=== PATIENT | male | born 2000 ===

== ENCOUNTER 2022-10-29 05:28 | Emergency (ER) | payer OTHER, SELFPAY ==
--- NOTE | ~2022-10-29 | XR_ITS ---
EXAMINATION: XR CHEST CLINICAL INFORMATION: Shortness of breath COMPARISON: None available. TECHNIQUE: 2 views of the chest were obtained. FINDINGS: The cardiac and mediastinal contours are normal. The lungs are well inflated. The lungs are clear. No pleural effusion or pneumothorax. Bony structures are unremarkable. XR/XR chest 2V IMPRESSION: Well-inflated lungs. No evidence for acute disease in the chest.
[2022-10-29 05:33] VITALS: BP 135/95; PULSE 88; RESP 16; TEMP 36.7; O2SAT 97; BMI 19.8
--- NOTE | 2022-10-29 06:46 | ED.SOB ---
HPI - SOB/Dyspnea General Chief Complaint: Dyspnea Stated Complaint: Shortness of breath Time Seen by Provider: 10/29/22 06:37 Source: patient and RN notes reviewed Mode of arrival: ambulatory Limitations: no limitations History of Present Illness HPI Narrative: This is a 22-year-old male, with a past medical history of ADHD and anxiety, presents to the emergency department today with complaints of shortness of breath x 4 days. Patient states that last week he had an upper respiratory infection where he had nasal congestion, cough, and fevers. He states that his symptoms improved for several days and then 4 days ago he developed this shortness of breath. He states that he has had difficulty sleeping due to the shortness of breath he is feeling. He admits to having some nasal congestion and a cough. Patient denies history of asthma. Denies tobacco use, does vape and smoke marijuana occasionally. He denies any chest pain, palpitations, fevers, chills, ear pain, sore throat, abdominal pain, nausea, vomiting, or diarrhea. No swelling to his legs. Denies taking any medications at home to treat his symptoms. No recent travels, surgeries, hospitalizations, hx of blood clots, or cancer history. No family history of blood clotting disorders. Denies hx of illicit drug use. No other complaints or concerns at this time. MD elicited complaint: shortness of breath and anxiety Onset (ago): day(s) Context: recent illness and anxiety Timing: constant Severity: moderate Exacerbating factors: nothing Relieving factors: nothing Associated symptoms: denies other symptoms Treatment prior to arrival: none Related Data Previous Rx's Medication Instructions Recorded albuterol sulfate 90 mcg/actuation 2 puff inhalation Q4-6H PRN 10/29/22 aerosol inhaler (ProAir HFA) shortness of breath or wheezing #6.7 grams inhalational spacing device #1 ea 10/29/22 (Aerochamber MV spacer) prednisone 20 mg tablet 40 mg PO DAILY 5 days #10 tabs 10/29/22 Allergies Allergy/AdvReac Type Severity Reaction Status Date / Time shellfish derived AdvReac Anaphylaxis Verified 10/29/22 05:37 Review of Systems Review of Systems: Constitutional: No Weight loss, No Fever, No Chills, No Night Sweats, No Fatigue, No Malaise ENT/Mouth: No Hearing loss, No Ear Pain, + Nasal Congestion, No Sinus Pain, No Hoarseness, No sore throat, No Rhinorrhea, No Swallowing Difficulty Eyes: No Eye Pain, No Swelling, No Redness, No Foreign Body, No Discharge, No Vision Changes Cardiovascular: No Chest Pain, +SOB, No Dyspnea on Exertion, No Orthopnea, No Edema, No Palpitations Respiratory: No Cough, No Sputum, No Wheezing, No Smoke Exposure, No Dyspnea Gastrointestinal: No Nausea, No Vomiting, No Diarrhea, No Constipation, No Abdominal pain, No Hematochezia, No Melena Genitourinary: No irregular bleeding, No Dysuria, No Urinary Frequency, No Hematuria, No Urinary Incontinence/retention, No Urgency, No Flank Pain, No Urinary Flow Changes, No Hesitancy Musculoskeletal: No joint pain, No Myalgias, No Joint Swelling Skin: No Skin Lesions, No rash Neuro: No Weakness, No Numbness, No Paresthesias, No Loss of Consciousness, No Dizziness, No Headache Psych: No Anxiety/Panic, No Depression, No SI/HI/AH/VH, No Social Issues, Heme/Lymph: No Bruising, No Bleeding,No Lymphadenopathy Endocrine: No Polyuria, No Polydipsia, No Temperature Intolerance Yes all other systems are reviewed and are negative Constitutional: Constitutional: Reports as per [facility] Social History Social History Alcohol intake: never Smoked in Last 30 Days: No Use of substances other than those prescribed or required for medical reasons: No Advance Directives: No Advance Directives Information Provided: No Physical Exam Vital Signs: Vital Signs: Last Vital Signs Temp 97.6 F 10/29/22 07:47 Pulse 58 10/29/22 08:28 Resp 16 10/29/22 08:28 BP 121/84 10/29/22 07:47 Pulse Ox 98 10/29/22 07:47 O2 Del Method Room Air 10/29/22 07:47 BMI result Body Mass Index 19.8 Const: General: cooperative, comfortable and no acute distress Nutritional Appearance: thin Orientation/consciousness: patient oriented x3 Limitations: no limitations HEENT: Head: Yes normal to inspection, Yes normocephalic and Yes atraumatic Ears: hearing grossly normal bilaterally General nose exam: Normal external nose present Face and sinus: Yes normal facial exam Mouth: Normal oral and palatal mucosa present, oropharynx normal and moist mucous membranes Throat: Yes posterior oropharynx normal Eyes: General: appearance normal, both eyes and all related structures Eyelids: Yes eyelids normal Conjunctivae: conjunctivae normal Sclerae: sclerae normal Pupils: Equal, round and reactive pupils present EOM: EOMs intact bilaterally Neck: Neck: Yes normal visual inspection, Yes full ROM and Yes no lymphadenopathy Lymphatic: no lymphadenopathy noted Chest: Chest palpation & inspection: normal inspection of the chest Resp: Effort & Inspection: normal respiratory effort and able to speak in complete sentences Auscultation: clear to auscultation bilaterally, no crackles, no rales, no rhonchi and no wheezes Cardio: Rate: regular rate Rhythm: regular rhythm Heart sounds: S1 normal heart sound present and S2 normal heart sound present GI: Inspection: Yes normal to inspection Skin: General skin exam: no rashes or lesions noted Trauma: no lacerations or abrasions Wounds: no wounds Neuro: General: patient oriented x3 and moves all extremities Cranial nerves: Yes Equal, round and reactive pupils present Extrem: General: Yes normal to inspection Right upper extremity: normal to inspection Left upper extremity: normal to inspection Right lower extremity: normal to inspection Left lower extremity: normal to inspection Course Reevaluation(s) Reevaluation #1: Chest x-ray unremarkable. COVID testing pending. Patient has no history asthma, However will try 2 puffs of albuterol inhaler. Time: 07:19 Reevaluation #2: Pt's symptoms improved with albuterol, but still having SOB. Lungs clear to auscultation without wheezes or rhonchi, ?slightly diminished lung sounds in the left lower lobe.given mild improvement will try albuterol updraft. Reevaluation #3: Pt's symptoms completely resolved after albuterol updraft. Lungs clear to auscultation, better air movement throughout all lung araujo. No wheezes or rhonchi. Will discharge pt on albuterol inhaler, spacer, and prednisone course. Advised to f/u with PCP as they may want to test pt for asthma. Pt understands and agrees with plan. Vital signs stable. Pt stable for discharge. Medications Administered Discontinued Medications Generic Name Dose Route Start Last Admin Trade Name Freq PRN Reason Stop Dose Admin Albuterol Sulfate 2 puff 10/29/22 07:22 10/29/22 07:50 Albuterol Sulfate 90 Mcg 8 Gm Inhaler INHALE 10/29/22 07:23 2 puff ONCE ONE Administration Albuterol Sulfate 5 mg 10/29/22 08:10 10/29/22 08:27 Albuterol Sulfate (0.083%) 2.5 Mg/3 Ml Vial.Neb INHALE 10/29/22 08:11 5 mg ONCE ONE Administration Medical Decision Making Medical Decision Making [facility] Narrative: 22 y/o M, hx of anxiety and ADHD, who presents for evaluation of shortness of breath x 4 days. Recent URI 2 weeks ago. Reports mild cough and nasal congestion. Pt has no chest pain, fevers, chills. No PE/DVT risk factors. On exam, vital signs WNL, pt's O2 97% on RA with a repiratory rate of 16rpm. Pt is nontoxic appearing and resting comfortably in stretcher. Lungs CTAB. Plan: Chest x-ray, COVID-19. Differential Diagnosis Differential Diagnoses: The differential diagnosis associated with the presentation includes Pneumothorax, pneumonia, reactive airway disease, PE - unlikely Admission/Observation Consideration of admission/observation: Escalation of care including admission/observation considered Lab Data [facility] Lab Attestation statement: I reviewed the patient's lab results. Labs: Lab Results 10/29/22 Range/Units 07:17 COVID-19 (MAHAMED) Negative (Negative) COVID-19 Clin Com See Note Radiology Impression Discussion of test interpretation with radiology: I have reviewed the radiologist's reading. Radiologist Impression: EXAMINATION: XR CHEST CLINICAL INFORMATION: Shortness of breath COMPARISON: None available. TECHNIQUE: 2 views of the chest were obtained. FINDINGS: The cardiac and mediastinal contours are normal. The lungs are well inflated. The lungs are clear. No pleural effusion or pneumothorax. Bony structures are unremarkable. XR/XR chest 2V IMPRESSION: Well-inflated lungs. No evidence for acute disease in the chest. Dictated By: Ami Sierra MD External Record Review External record reviewed: Inpatient record, Office record, Outpatient record, Prior outpatient labs, Prior outpatient radiology, Primary care record and Outside ED record Discharge Plan Discharge Clinical Impression: Reactive airway disease Patient Disposition: Home, Self-Care Instructions: Reactive Airways Disease (ED) Additional Instructions: You tested negative for COVID today. Your chest x-ray showed no pneumonia. Please take prescribed prednisone as directed for the next 5 days. Please use albuterol inhaler as needed for your symptoms. Follow up with your primary care physician, call monday to make an appointment - they may want to test you for asthma. If any new or worsening symptoms occur, including but not limited to chest pain, palpitations, worsening shortness of breath not responding to inhaler, please return for re-evaluation. Prescriptions: New prednisone 20 mg tablet 40 mg PO DAILY 5 Days Qty: 10 0RF albuterol sulfate [ProAir HFA] 90 mcg/actuation HFA aerosol inhaler 2 puff inhalation Q4-6H PRN (Reason: shortness of breath or wheezing) Qty: 6.7 0RF (DME) Aerochamber MV Spacer See Rx Instructions .Route Qty: 1 0RF Rx Instructions: As directed Interventions: ED Discharge Assessment Last Done: 10/29/22 09:25 Discharge Date/Time: 10/29/22 09:26
--- NOTE | 2022-10-29 07:19 | PC.NURSE ---
assumed care of this pt at 0700. pt resting quietly on stretcher. rr even/unlabored. in no apparent distress. wctm
[2022-10-29 07:47] VITALS: BP 121/84; PULSE 51; RESP 16; TEMP 36.4; O2SAT 98
[2022-10-29] MEDS: Albuterol Sulfate 90 MCG 8 GM INHALER 2 PUFF INHALE (07:50)
[2022-10-29 07:51] LABS: COVID-19 Test Negative (Negative); IDNOW Serial# BCCEAD1C
[2022-10-29] MEDS: Albuterol Sulfate (0.083%) 2.5 MG/3 ML VIAL.NEB 5 MG INHALE (08:27)
[2022-10-29 08:28] VITALS: PULSE 58; RESP 16; O2SAT 98
== END 2022-10-29 09:26 | disposition home or self-care (01) ==
PROVIDERS: Physician Assistant Medical; Emergency Provider Emergency Medicine Emergency Medical Services
DX: J45.909 Unspecified asthma, uncomplicated (principal); Z20.822 Contact with and (suspected) exposure to COVID-19; R06.02 Shortness of breath
CPT/HCPCS: 71046; 87635; 94640; 99284; 99285

== ENCOUNTER 2023-01-18 21:26 | Emergency (ER) | payer OTHER, SELFPAY ==
--- NOTE | 2023-01-18 | ECG_ITS ---
Test Reason : sob Blood Pressure : / mmHG Vent. Rate : 071 BPM Atrial Rate : 071 BPM P-R Int : 180 ms QRS Dur : 092 ms QT Int : 344 ms P-R-T Axes : 078 048 058 degrees QTc Int : 373 ms Normal sinus rhythm Normal ECG When compared with ECG of 07-SEP-2006 12:05, No significant changes seen Referred By: Generic ED Physician Electronically Signed By:ALEJANDRA BOOTH
--- NOTE | ~2023-01-18 | XR_ITS ---
EXAMINATION: XR CHEST CLINICAL INFORMATION: Dyspnea COMPARISON: 10/29/2022 TECHNIQUE: 2 views of the chest were obtained. FINDINGS: The lungs are well expanded. There is no focal consolidation, edema, or effusion. No pneumothorax. The cardiomediastinal silhouette is within normal limits. No acute osseous abnormality. XR/XR chest 2V IMPRESSION: Clear lungs.
[2023-01-18 22:09] VITALS: BP 133/94; PULSE 67; RESP 18; TEMP 36.9; O2SAT 99; BMI 21.3
[2023-01-19 01:52] VITALS: BP 123/95; PULSE 60; RESP 12; TEMP 36.6; O2SAT 98
--- NOTE | 2023-01-19 02:42 | ED.SOB ---
HPI - SOB/Dyspnea General Chief Complaint: Dyspnea Stated Complaint: SOB for three days, some chest pain Time Seen by Provider: 01/19/23 02:33 Source: patient Mode of arrival: ambulatory Limitations: no limitations History of Present Illness HPI Narrative: Patient comes to the emergency room complaining of mild congestion shortness of breath at night. Patient denies coughing, no fever or chills. No chest pain. Related Data Previous Rx's Medication Instructions Recorded albuterol sulfate 90 mcg/actuation 2 puff inhalation Q4-6H PRN 10/29/22 aerosol inhaler (ProAir HFA) shortness of breath or wheezing #6.7 grams inhalational spacing device #1 ea 10/29/22 (Aerochamber MV spacer) prednisone 20 mg tablet 40 mg PO DAILY 5 days #10 tabs 10/29/22 albuterol sulfate 90 mcg/actuation 2 puff inhalation Q4-6H PRN 01/19/23 aerosol inhaler shortness of breath or wheezing #8.5 grams prednisone 50 mg tablet 50 mg PO DAILY #4 tabs 01/19/23 Allergies Allergy/AdvReac Type Severity Reaction Status Date / Time shellfish derived AdvReac Anaphylaxis Verified 10/29/22 05:37 Review of Systems Review of Systems: Constitutional : No Weight loss, No Fever, No Chills, No Night Sweats, No Fatigue, No Malaise ENT/Mouth : No Hearing loss, No Ear Pain, complaining of Nasal Congestion, No Sinus Pain, No Hoarseness, No sore throat, No Rhinorrhea, No Swallowing Difficulty Eyes: No Eye Pain, No Swelling, No Redness, No Foreign Body, No Discharge, No Vision Changes Cardiovascular : No Chest Pain, No SOB, No Dyspnea on Exertion, No Orthopnea, No Edema, No Palpitations Respiratory : Shortness of breath at night Gastrointestinal : No Nausea, No Vomiting, No Diarrhea, No Constipation, No abdominal Pain, No Hematochezia, No Melena Genitourinary : no irregular bleeding, No Dysuria, No Urinary Frequency, No Hematuria, No Urinary Incontinence, No Urgency, No Flank Pain, No Urinary Flow Changes, No Hesitancy Musculoskeletal : No joint pain, No Myalgias, No Joint Swelling Skin : No Skin Lesions, No rash Neuro : No Weakness, No Numbness, No Paresthesias, No Loss of Consciousness, No Dizziness, No Headache Psych : No Anxiety/Panic, No Depression, No SI/HI/AH/VH, No Social Issues, Heme/Lymph: No Bruising, No Bleeding,No Lymphadenopathy Endocrine : No Polyuria, No Polydipsia, No Temperature Intolerance [facility] Social History Social History Alcohol intake: never Advance Directives: No Advance Directives Information Provided: Yes Physical Exam Vital Signs: Vital Signs: Last Vital Signs Temp 97.9 F 01/19/23 01:52 Pulse 60 01/19/23 01:52 Resp 12 01/19/23 01:52 BP 123/95 H 01/19/23 01:52 Pulse Ox 98 01/19/23 01:52 O2 Del Method Room Air 01/19/23 01:52 BMI result Body Mass Index 21.3 Const: Other: Appearance: Alert. Oriented X3. No acute distress. Eyes: Pupils equal, round and reactive to light. ENT: Pharynx normal. Neck: Normal inspection. Neck supple. No lymph nodes noted. No crepitus CVS: Normal heart rate and rhythm. Pulses normal. Normal S1 and S2 Respiratory: No respiratory distress. Very mild occasional wheeze in both lungs, good air movement Abdomen: Soft and nontender. No rigidity. No distention. Skin: Skin warm and dry. Normal skin color. Normal skin turgor. Extremities: No lower extremity edema. No Lacerations. No Rash Neuro: Oriented X 3. No motor deficit. No sensory deficit. Moving all extremities. No slurred speech. CN 2 through 12 grossly intact Psych: calm, cooperative, normal affect Medical Decision Making Medical Decision Making MDM Narrative: -my interpretation of EKG: Normal sinus rhythm, heart rate 71, no ST segment depression or elevation, no T-wave inversion, QTC 373 -interpretation of chest x-ray: No pneumonia/infiltrates -I discussed the physical exam with the patient, patient has very mild wheezing. Patient given p.o. prednisone and a prescription for albuterol. Patient states he has no history of asthma. However, reviewing patient's medical record, he has been prescribed prednisone and albuterol in the past Differential Diagnosis Differential Diagnoses: The differential diagnosis associated with the presentation includes (Asthma, pneumonia, reactive airway disease, viral bronchitis) Independent Interpretation I performed an independent interpretation of an: Plain X-Ray Radiology Impression Discussion of test interpretation with radiology: I have reviewed the radiologist's reading. Radiologist Impression: FINDINGS: No significant abnormality is noted involving the heart, lungs, mediastinum, bony thorax or soft tissues. XR/XR chest 1V IMPRESSION: Unremarkable examination. Discharge Plan Discharge Clinical Impression: Reactive airway disease Patient Disposition: Home, Self-Care Instructions: Asthma (ED) Additional Instructions: Please follow-up with your primary care physician tomorrow. If you have any worsening or new symptoms, please return to the emergency room or call 911 Prescriptions: New albuterol sulfate 90 mcg/actuation HFA aerosol inhaler 2 puff inhalation Q4-6H PRN (Reason: shortness of breath or wheezing) Qty: 8.5 0RF prednisone 50 mg tablet 50 mg PO DAILY Qty: 4 0RF No Action prednisone 20 mg tablet 40 mg PO DAILY 5 Days Qty: 10 0RF albuterol sulfate [ProAir HFA] 90 mcg/actuation HFA aerosol inhaler 2 puff inhalation Q4-6H PRN (Reason: shortness of breath or wheezing) Qty: 6.7 0RF (DME) Aerochamber MV Spacer See Rx Instructions .Route Qty: 1 0RF Rx Instructions: As directed
[2023-01-19] MEDS: predniSONE 10 MG TABLET 50 MG PO (02:59)
--- NOTE | 2023-01-19 03:13 | PC.NURSE ---
this rn medicated pt according to aug. 1 10mg tablet prednisone dropped on ground. this rn and studio operations engineer in charge inventory counted prednisone to obtain missing tablet
== END 2023-01-19 03:15 | disposition home or self-care (01) ==
PROVIDERS: Emergency Provider Emergency Medicine
DX: R06.02 Shortness of breath (principal); J45.909 Unspecified asthma, uncomplicated
CPT/HCPCS: 71045; 71046; 93005; 99283; 99284

== ENCOUNTER → 2023-01-18 21:40 | Outpatient (BNV) | payer OTHER, SELFPAY | PROVIDERS: Emergency Provider Emergency Medicine; Visit Provider Internal Medicine | DX: R06.02 Shortness of breath (principal) | CPT/HCPCS: 93010 ==

== ENCOUNTER 2023-10-31 23:10 | Emergency (ER) | payer OTHER, SELFPAY ==
--- NOTE | ~2023-10-31 | XR_ITS ---
EXAMINATION: XR CHEST CLINICAL INFORMATION: Dyspnea. COMPARISON: None available. TECHNIQUE: Frontal view of the chest was obtained. FINDINGS: No significant abnormality is noted involving the heart, lungs, mediastinum, bony thorax or soft tissues. XR/XR chest 1V IMPRESSION: Unremarkable examination.
[2023-10-31 23:13] VITALS: BP 131/94; PULSE 79; RESP 18; TEMP 36.8; O2SAT 97; BMI 22.0
--- NOTE | 2023-10-31 23:28 | MHC.EDTECH ---
Patient brought into triage area,sars/and strep swabs obtained and sent to lab.
[2023-10-31 23:49] LABS: IDNOW Serial# 6674DD1D; Strep A Nucleic Acid Negative (Negative)
[2023-11-01 00:10] LABS: Influenza A PCR NEGATIVE (Negative); Influenza B PCR NEGATIVE (Negative); Resp Syncy Virus RNA Qual PCR NEGATIVE (Negative); SARS COV2 PCR INHOUSE NEGATIVE (Negative)
--- OUTSIDE RECORDS SUMMARY | 2023-11-01 03:24 | XMS_ITS | Continuity of Care Document ---
Author Organization [facility] Address [address] [place] [address]- Care Team Providers Care Grinding And Polishing Laborer Name Role Phone Negra Cevallos NP Primary Care Physician [phone] Encounter [facility] [place] Date(s): 09/19/19 - 09/26/19 [facility]/[address] [address]- [facility] Attending Physician: Negra Cevallos NP Admitting Physician: Negra Cevallos NP Allergies, Adverse Reactions, Alerts Substance Reaction Severity Status NKA Active Immunizations Given and Recorded Vaccine Date Status Refusal Reason influenza virus vaccine, inactivated 1 07/11/17 Re corded influenza virus vaccine, inactivated 06/18/14 Give n influenza virus vaccine, inactivated 2 03/21/13 Gi shahab influenza virus vaccine, inactivated 3 05/21/12 Gi shahab tetanus/diphtheria/pertussis, acel(Tdap) 03/24/17 Given rabies vaccine, human diploid cell 4 11/13/14 Give n Rabies Immune Globulin, Human 5 11/13/14 Given Meningococcal Conjugate Vaccine 06/18/14 Given Human Papillomavirus Vaccine 6 09/16/13 Given Human Papillomavirus Vaccine 7 05/27/13 Given Human Papillomavirus Vaccine 8 03/21/13 Given 1Result Comment: [07/31/2017] Given at [facility]. 2Result Comment: [03/21/2013] ORDER DR OLSON 3Admin Note: VIS GIVEN:12/19/2011 4Result Comment: right deltoid 5Result Comment: [id number] injections into three injections. Left and right anteriorlateral thigh and left deltoid. Performed by this nurse and Valencia RN 6Result Comment: [09/16/2013] Ordered by Day Olson MD 7Result Comment: [05/28/2013] Ordered by Wesley 8Result Comment: [03/21/2013] ORDER DR OLSON Medications hydrOXYzine hydrochloride 25 mg oral tablet See Instructions, PRN anxiety/panic. Take 1/2-1 tab PO up to 3x per day PRN anxiety/panic attacks.,# 30 tablet, 1 Refills, Maintenance, 09/19/19 9:16:00 EDT, [id number], 184.5, cm, 06/26/18 8:09:00 EST, Height, 69.7, kg, 06/22/19 15:01:00 ES... Start Date: 09/19/19 Status: Ordered sertraline 50 mg oral tablet 1 tablet = 50 mg, By Mouth, Daily, For depression, take 1/2 tab PO daily x 7 days, then increase to1 tab PO daily thereafter., # 30 tablet, 1 Refills, Maintenance, 09/19/19 9:14:00 EDT, [id number], 184.5, cm, 06/26/18 8:09:00 EST, Height, 69.... Start Date: 09/19/19 Status: Ordered Problem List Condition Effective Dates Status Health Status Inform ant ADHD(Confirmed) Active Anxiety(Confirmed) Active Pectus excavatum(Confirmed) Active Social History Social History Type Response Smoking Status Never (less than 100 in lifetime) entered on: 06/26/18 Sex
--- OUTSIDE RECORDS SUMMARY | 2023-11-01 03:24 | XMS_ITS | Continuity of Care Document ---
Author Organization [facility] Address [address] [place] [address]- Care Team Providers Care Cost Report Clerk Name Role Phone Mart PIERRE, Negra Primary Care Physician [phone] Encounter [facility] Date(s): 09/14/23 - 10/14/23 [facility]/[address] [address]- Attending Physician: Roberto Alcantar Admitting Physician: AdmtrRoberto Referring Physician: Admtr, ArKaylynn Allergies, Adverse Reactions, Alerts No Known Allergies Immunizations Given and Recorded Vaccine Date Status Refusal Reason rabies vaccine, human diploid cell 01/14/20 Given rabies vaccine, human diploid cell 01/06/20 Given rabies vaccine, human diploid cell 01/02/20 Given rabies vaccine, human diploid cell 1 11/13/14 Give n tetanus/diphtheria/pertussis, acel(Tdap) 12/25/19 Given tetanus/diphtheria/pertussis, acel(Tdap) 03/24/17 Given influenza virus vaccine, inactivated 2 07/11/17 Re corded influenza virus vaccine, inactivated 06/18/14 Give n influenza virus vaccine, inactivated 3 03/21/13 Gi shahab influenza virus vaccine, inactivated 4 05/21/12 Gi shahab Rabies Immune Globulin, Human 5 11/13/14 Given Meningococcal Conjugate Vaccine 06/18/14 Given Human Papillomavirus Vaccine 6 09/16/13 Given Human Papillomavirus Vaccine 7 05/27/13 Given Human Papillomavirus Vaccine 8 03/21/13 Given 1Result Comment: right deltoid 2Result Comment: [07/31/2017] Given at [facility]. 3Result Comment: [03/21/2013] ORDER DR OLSON 4Admin Note: VIS GIVEN:12/19/2011 5Result Comment: [id number] injections into three injections. Left and right anteriorlateral thigh and left deltoid. Performed by this nurse and Valencia MURRAY 6Result Comment: [09/16/2013] Ordered by Day Olson MD 7Result Comment: [05/28/2013] Ordered by Wesley 8Result Comment: [03/21/2013] ORDER DR OLSON Medications hydrOXYzine hydrochloride 25 mg oral tablet See Instructions, PRN anxiety/panic. Take 1/2-1 tab PO up to 3x per day PRN anxiety/panic attacks.,# 30 tablet, 2 Refills, Maintenance, 11/20/19 10:59:00 EDT, [id number], 184.5, cm, 208:36:00 EDT, Height, 69.7, kg, 06/22/19 15:01:00 E... Start Date: 11/20/19 Status: Ordered PARoxetine 20 mg oral tablet 20 mg, 1, tablet, By Mouth, Daily, To replace paroxetine 10 mg. For anxiety and depression., # 30 tablet, Refills 2, Tot. Refills 2, Maintenance, 12/25/19 11:03:00 EDT, Route to Pharmacy Electronically, [id number], 184.5, cm, 11/20/19 8:36:00... Start Date: 12/25/19 Status: Ordered Problem List Condition Confirmation Course Effective Dates Status Health St atus Informant ADHD Confirmed Active Anxiety Confirmed Active Pectus excavatum Confirmed Active Social History Social History Type Response Smoking Status Never (less than 100 in lifetime) entered on: 06/26/18 Sex Patient Care team information Care Team Personnel Name: Negra Cevallos NP Position: [facility] PCO Associate Professional Member Role: PCP Address: Address: [address] [place] [address]- Name: Tracey Rodriguez Position: [facility] Outreach Member Role: Lifetime Consulting Physician Care Team Related Persons Name: AARON TERRELL Address: home [address] [place] [address] Name: BEVERLY MEZA Address: home [address] [place] [address]
--- OUTSIDE RECORDS SUMMARY | 2023-11-01 03:24 | XMS_ITS | Continuity of Care Document ---
Author Organization [facility] Address Unknown Care Team Providers Care Is Support Analyst Name Role Phone Mart PIERRE, Negra Primary Care Physician [phone] [place] [facility] [place]13[place] 05/13/21 [facility] Allergies, Adverse Reactions, Alerts Substance Reaction Severity [...] right deltoid 2Result Comment: [07/31/2017] Given at [facility]. 3Result Comment: [03/21/2013] ORDER DR BOWLING 4Admin Note: VIS GIVEN:12/19/2011 5Result Comment: [id number] injections into three injections. Left and right anteriorlateral thigh and left deltoid. Performed by this nurse and Valencia RN 6Result Comment: [09/16/2013] Ordered by Day Bowling MD 7Result Comment: [05/28/2013] Ordered by Wesley 8Result Comment: [03/21/2013] ORDER DR BOWLING Medications hydrOXYzine hydrochloride 25 mg oral tablet See Instructions, PRN anxiety/panic. Take 1/2-1 tab PO up to 3x per day PRN anxiety/panic attacks.,# 30 tablet, 2 Refills, Maintenance, 11/20/19 10:59:00 EDT, [facility]/pharmacy #[id number], 184.5, cm, :36:00 EDT, Height, 69.7, kg, 06/22/19 15:01:00 E... Start Date: 11/20/19 Status: Ordered PARoxetine 20 mg oral tablet 20 mg, 1, tablet, By Mouth, Daily, To replace paroxetine 10 mg. For anxiety and depression., # 30 tablet, Refills 2, Tot. Refills 2, Maintenance, 12/25/19 11:03:00 EDT, Route to Pharmacy Electronically, [facility]/pharmacy #1026, 184.5, cm, 11/20/19 8:36:00... Start Date: 12/25/19 Status: Ordered Problem List Condition Effective Dates Status Health Status Inform ant ADHD(Confirmed) Active Anxiety(Confirmed) Active Pectus excavatum(Confirmed) Active Social History Social History Type Response Smoking Status Never (less than 100 in lifetime) entered on: 06/26/18 Sex
--- OUTSIDE RECORDS SUMMARY | 2023-11-01 03:24 | XMS_ITS | Continuity of Care Document ---
Author Organization [facility] Address [address] [place] [address]- Care Team Providers Care Cream Tester Name Role Phone Negra Cevallos NP Primary Care Physician [phone] Encounter [facility] [place] Date(s): 11/07/19 - 11/14/19 [facility]/[address] [address]- [facility] Attending Physician: Negra Cevallos NP Allergies, Adverse Reactions, [...] 03/21/13 Given 1Result Comment: [07/31/2017] Given at [facility]. 2Result Comment: [03/21/2013] ORDER DR OLSON 3Admin Note: VIS GIVEN:12/19/2011 4Result Comment: right deltoid 5Result Comment: [id number] injections into three injections. Left and right anteriorlateral thigh and left deltoid. Performed by this nurse and Valencia RN 6Result Comment: [09/16/2013] Ordered by Day Olson MD 7Result Comment: [05/28/2013] Ordered by Wesley 8Result Comment: [03/21/2013] ORDER DR OLSON Medications acetaminophen 500 mg oral tablet 2 tablet = 1,000 mg, By Mouth, 3 times a day, PRN bodyaches, fever or headache. not to exceed 3000 mg/day, # 100 tablet, 0 Refills, Acute 11/23/19 10:13:00 EDT, 10/23/19 10:13:00 EDT, [facility]acy [facility]1026, 184.5, cm, 06/26/18 8:09:00 EST, Height, 69.7... Start Date: 10/23/19 Stop Date: 11/23/19 Status: Ordered hydrOXYzine hydrochloride 25 mg oral tablet See [...]
--- OUTSIDE RECORDS SUMMARY | 2023-11-01 03:24 | XMS_ITS | Continuity of Care Document ---
Author Organization [facility] Address Unknown Care Team Providers Care It Systems Analyst Consultant Name Role Phone Mart PIERRE, Negra Primary Care Physician [place] [facility] [place]16[place]21 [place] 04/15/21 [facility] Allergies, Adverse Reactions, Alerts Substance Reaction Severity [...] right deltoid 2Result Comment: [07/31/2017] Given at [facility]. 3Result Comment: [03/21/2013] ORDER DR OLSON 4Admin Note: VIS GIVEN:12/19/2011 5Result Comment: [id number] injections into three injections. Left and right [...]
--- OUTSIDE RECORDS SUMMARY | 2023-11-01 03:24 | XMS_ITS | Continuity of Care Document ---
Author Organization [facility] Address [address] [place] [address]- Care Team Providers Care Environmental Program Manager Name Role Phone Mart PIERRE, Negra Primary Care Physician [place] [facility] [place](s): 11/15/22 - 12/15/22 [facility] [address]- Attending Physician: Roberto Alcantar Admitting Physician: Admtr, Ar8 Referring Physician: Admtr, Ar8 Allergies, Adverse Reactions, Alerts No Known Allergies [...] right deltoid 2Result Comment: [07/31/2017] Given at [facility]. 3Result Comment: [03/21/2013] ORDER DR OLSON 4Admin Note: VIS GIVEN:12/19/2011 5Result Comment: [id number] injections into three injections. Left and right [...] tablet, 2 Refills, Maintenance, 11/20/19 10:59:00 EDT, [facility]/pharmacy #1026, 184.5, cm, 208:36:00 EDT, Height, 69.7, kg, 06/22/19 15:01:00 E... Start Date: 11/20/19 Status: Ordered PARoxetine 20 mg oral tablet 20 mg, 1, tablet, By Mouth, Daily, To replace paroxetine 10 mg. For anxiety and depression., # 30 tablet, Refills 2, Tot. Refills 2, Maintenance, 12/25/19 11:03:00 EDT, Route to Pharmacy Electronically, [facility]/pharmacy #1026, 184.5, cm, 11/20/19 8:36:00... [...] Team Personnel Name: Negra Cevallos NP Position: [facility] PCO Associate Professional Member Role: PCP Address: Address: [address] [place] [address]- Name: Tracey Rodriguez Position: [facility] Outreach Member Role: Lifetime Consulting Physician Care Team Related Persons Name: TERRELL AARON Address: home [address] [place] [id number] Name: BEVERLY MEZA Address: home [address] [place] [address]
--- OUTSIDE RECORDS SUMMARY | 2023-11-01 03:24 | XMS_ITS | Continuity of Care Document ---
Author Organization [facility] Address [address] [place] [address]- Care Team Providers Care Spring Upholsterer Name Role Phone Negra Cevallos NP Primary Care Physician Encounter [facility] [place] Date(s): 10/23/19 - 10/30/19 [facility]/[address] [address]- [facility] Attending Physician: Negra Cevallos NP Allergies, [...] 03/21/13 Given 1Result Comment: [07/31/2017] Given at [facility]. 2Result Comment: [03/21/2013] ORDER DR OLSON 3Admin Note: VIS GIVEN:12/19/2011 4Result Comment: right deltoid 5Result Comment: [id number] injections into three injections. Left and right [...]
--- OUTSIDE RECORDS SUMMARY | 2023-11-01 03:24 | XMS_ITS | Continuity of Care Document ---
Author Organization [facility] Address [address] [place] [address]- Care Team Providers Care Breast Buffer Name Role Phone Mart PIERRE, Negra Primary Care Physician [phone] [place] [facility] [place] Date(s): 02/14/20 - 03/15/20 [facility] [address] [place] [address]- [facility] Attending Physician: Admtr, Vadim8 Admitting Physician: Admtr, Ar8 Referring Physician: Admtr, Ar8 Allergies, Adverse Reactions, Alerts Substance Reaction Severity [...] right deltoid 2Result Comment: [07/31/2017] Given at [facility]. 3Result Comment: [03/21/2013] ORDER DR OLSON 4Admin Note: VIS GIVEN:12/19/2011 5Result Comment: [id number] injections into three injections. Left and right [...] tablet, 2 Refills, Maintenance, 11/20/19 10:59:00 EDT, [facility]/pharmacy #1026, 184.5, cm, 208:36:00 EDT, Height, [...]
--- OUTSIDE RECORDS SUMMARY | 2023-11-01 03:24 | XMS_ITS | Continuity of Care Document ---
Author Organization [facility] Address [address] [place] [address]- Care Team Providers Care Chemist Internship Name Role Phone Mart PIERRE, Negra Primary Care Physician En[place] [facility] [place] Date(s): 06/30/23 - 08/31/23 [facility] [address]- Attending Physician: Erica Choudhary MD Admitting Physician: Erica Choudhary MD Allergies, Adverse Reactions, Alerts No Known Allergies [...] right deltoid 2Result Comment: [07/31/2017] Given at [facility]. 3Result Comment: [03/21/2013] ORDER DR OLSON 4Admin Note: VIS GIVEN:12/19/2011 5Result Comment: [id number] injections into three injections. Left and right [...] tablet, 2 Refills, Maintenance, 11/20/19 10:59:00 EDT, [facility]/pharmacy #1026, 184.5, cm, 208:36:00 EDT, Height, 69.7, kg, 06/22/19 15:01:00 E... Start Date: 11/20/19 Status: Ordered PARoxetine 20 mg oral tablet 20 mg, 1, tablet, By Mouth, Daily, To replace paroxetine 10 mg. For anxiety and depression., # 30 tablet, Refills 2, Tot. Refills 2, Maintenance, 12/25/19 11:03:00 EDT, Route to Pharmacy Electronically, [facility]/pharmacy #1026, 184.5, cm, 11/20/19 8:36:00... Start Date: 12/25/19 Status: Ordered Problem List Condition Confirmation Course Effective Dates Status Health St atus Informant ADHD Confirmed Active Anxiety Confirmed Active Pectus excavatum Confirmed Active Social History Social History Type Response Smoking Status Never (less than 100 in lifetime) entered on: 06/26/18 Sex Patient Care team information Care Team Personnel Name: Negra Cevallos NP Position: [facility] PCO Associate Professional Member Role: PCP Address: Address: [address] [place] [phone]- Name: Tracey Rodriguez Position: [facility] Outreach Member Role: Lifetime Consulting Physician Care Team Related Persons Name: TERRELL AARON Address: home [address] [place] [address] Name: BEVERLY MEZA Address: home [address] [place] [address]
--- OUTSIDE RECORDS SUMMARY | 2023-11-01 03:25 | XMS_ITS | Continuity of Care Document ---
Author Organization [facility] Address Unknown Care Team Providers Care Dramatic Director Name Role Phone Mart PIERRE, Negra Primary Care Physician [phone] Encounter [facility] [place] [facility] [place] [id number] Date(s): 05/27/21 - 06/26/21 [facility] Attending Physician: Roberto Alcantar Admitting Physician: Roberto Alcantar Referring Physician: Roberto Alcantar Allergies, Adverse Reactions, Alerts Substance Reaction Severity [...] right deltoid 2Result Comment: [07/31/2017] Given at [facility]. 3Result Comment: [03/21/2013] ORDER DR OLSON 4Admin Note: VIS GIVEN:12/19/2011 5Result Comment: [id number] injections into three injections. Left and right [...] tablet, 2 Refills, Maintenance, 11/20/19 10:59:00 EDT, [facility]/pharmacy #1026, 184.5, cm, 208:36:00 EDT, Height, 69.7, kg, 06/22/19 15:01:00 E... Start Date: 11/20/19 Status: Ordered PARoxetine 20 mg oral tablet 20 mg, 1, tablet, By Mouth, Daily, To replace paroxetine 10 mg. For anxiety and depression., # 30 tablet, Refills 2, Tot. Refills 2, Maintenance, 12/25/19 11:03:00 EDT, Route to Pharmacy Electronically, [facility]/pharmacy #1026, 184.5, cm, 11/20/19 8:36:00... Start Date: 12/25/19 Status: Ordered predniSONE 20 mg oral tablet 3 tablet = 60 mg, By Mouth, Daily, # 21 tablet, 0 Refills, Acute 04/29/22 10:44:00 EST, 05/16/21 10:44:00 EST, Tablet, [facility]/pharmacy #[id number], Partial fill upon patient request if the prescription is fora schedule II opioid drug., 183, cm, 05/14/21 12:55... Start Date: 05/16/21 Stop Date: 04/29/22 Status: Ordered Problem List Condition Effective Dates Status Health Status Inform ant ADHD(Confirmed) Active Anxiety(Confirmed) Active Pectus excavatum(Confirmed) Active Social History Social History Type Response Smoking Status Never (less than 100 in lifetime) entered on: 06/26/18 Sex
--- OUTSIDE RECORDS SUMMARY | 2023-11-01 03:25 | XMS_ITS | Continuity of Care Document ---
Author Organization [facility] Address Unknown Care Team Providers Care Cold Mill Operator Name Role Phone Mart HELP DESK OPERATOR, Negra Primary Care Physician En[place] [facility] [place] Date(s): 03/16/21 - 05/01/21 [facility] Attending Physician: Erica Choudhary MD Admitting Physician: Erica Choudhary MD Allergies, Adverse Reactions, Alerts Substance Reaction Severity [...] right deltoid 2Result Comment: [07/31/2017] Given at [facility]. 3Result Comment: [03/21/2013] ORDER DR BOWLING 4Admin Note: VIS GIVEN:12/19/2011 5Result Comment: [id number] injections into three injections. Left and right [...] tablet, 2 Refills, Maintenance, 11/20/19 10:59:00 EDT, [facility]/pharmacy #1026, 184.5, cm, 208:36:00 EDT, Height, 69.7, kg, 06/22/19 15:01:00 E... Start Date: 11/20/19 Status: Ordered PARoxetine 20 mg oral tablet 20 mg, 1, tablet, By Mouth, Daily, To replace paroxetine 10 mg. For anxiety and depression., # 30 tablet, Refills 2, Tot. Refills 2, Maintenance, 12/25/19 11:03:00 EDT, Route to Pharmacy Electronically, [facility]/pharmacy #1026, 184.5, cm, 11/20/19 8:36:00... Start Date: 12/25/19 Status: Ordered Problem List Condition Effective Dates Status Health Status Inform ant ADHD(Confirmed) Active Anxiety(Confirmed) Active Pectus excavatum(Confirmed) Active Social History Social History Type Response Smoking Status Never (less than 100 in lifetime) entered on: 06/26/18 Sex
--- OUTSIDE RECORDS SUMMARY | 2023-11-01 03:25 | XMS_ITS | Continuity of Care Document ---
Author Organization [facility] Address [address] [place] [address]- Care Team Providers Care Necktie Centralizing Machine Operator Name Role Phone Mart PIERRE, Negra Primary Care Physician [phone] En[place] [facility] [place] Date(s): 08/22/23 - 10/14/23 [facility]/[address] [address]- Attending Physician: Negra Cevallos NP Admitting Physician: Negra Cevallos NP Allergies, Adverse Reactions, Alerts No Known Allergies [...] right deltoid 2Result Comment: [07/31/2017] Given at [facility]. 3Result Comment: [03/21/2013] ORDER DR OLSON 4Admin Note: VIS GIVEN:12/19/2011 5Result Comment: [id number] injections into three injections. Left and right [...] tablet, 2 Refills, Maintenance, 11/20/19 10:59:00 EDT, [facility]/pharmacy #1026, 184.5, cm, 208:36:00 EDT, Height, 69.7, kg, 06/22/19 15:01:00 E... Start Date: 11/20/19 Status: Ordered PARoxetine 20 mg oral tablet 20 mg, 1, tablet, By Mouth, Daily, To replace paroxetine 10 mg. For anxiety and depression., # 30 tablet, Refills 2, Tot. Refills 2, Maintenance, 12/25/19 11:03:00 EDT, Route to Pharmacy Electronically, [facility]/pharmacy #1026, 184.5, cm, 11/20/19 8:36:00... [...] Team Personnel Name: Negra Cevallos NP Position: [facility] PCO Associate Professional Member Role: PCP Address: Address: [address] [place] [address]- Name: Tracey Rodriguez Position: [facility] Outreach Member Role: Lifetime Consulting Physician Care Team Related Persons Name: GALEN TERRELL Address: home [address] [place] [address] Name: BEVERLY MEZA Address: home [address] [place] [address]
--- OUTSIDE RECORDS SUMMARY | 2023-11-01 03:25 | XMS_ITS | Continuity of Care Document ---
Author Organization [facility] Address [address] [place] [address]- Care Team Providers Care Deli Worker Name Role Phone Mart PIERRE, Negra Primary Care Physician Encounter [facility] Date(s): 12/25/19 - 12/25/[address] [address]- [facility] Encounter Diagnosis Dog bite(Final) - 12/25/19 Discharge Disposition: A-D/C Home Attending Physician: Mario Dennis MD Admitting Physician: Mario Dennis MD Referring Physician: Not on Staff, Referring MD Allergies, Adverse Reactions, Alerts Substance Reaction Severity Status NKA Active Immunizations Given and Recorded Vaccine Date Status Refusal Reason tetanus/diphtheria/pertussis, acel(Tdap) 12/25/19 Given tetanus/diphtheria/pertussis, acel(Tdap) 03/24/17 Given influenza virus vaccine, inactivated 1 07/11/17 Re corded influenza virus vaccine, inactivated 06/18/14 Give n influenza virus vaccine, inactivated 2 03/21/13 Gi shahab influenza virus vaccine, inactivated 3 05/21/12 Gi shahab rabies vaccine, human diploid cell 4 11/13/14 Give n Rabies Immune Globulin, Human 5 11/13/14 Given Meningococcal Conjugate Vaccine 06/18/14 Given Human Papillomavirus Vaccine 6 09/16/13 Given Human Papillomavirus Vaccine 7 05/27/13 Given Human Papillomavirus Vaccine 8 03/21/13 Given 1Result Comment: [07/31/2017] Given at [facility]. 2Result Comment: [03/21/2013] ORDER DR OLSON 3Admin Note: VIS GIVEN:12/19/2011 4Result Comment: right deltoid 5Result Comment: [id number] injections into three injections. Left and right anteriorlateral thigh and left deltoid. Performed by this nurse and Valencia RN 6Result Comment: [09/16/2013] Ordered by Day Olson MD 7Result Comment: [05/28/2013] Ordered by Wesley 8Result Comment: [03/21/2013] ORDER DR OLSON Medications amoxicillin-clavulanate 875 mg-125 mg oral tablet 1 tablet, By Mouth, Every 12 hours, for 7 days, # 14 tablet, 0 Refills, Acute 01/01/20 22:17:00 EDT, 12/25/19 22:17:00 EDT, Tablet, [facility]/pharmacy #1026, 186, cm, 12/25/19 19:59:00 EDT, Height, 67.1, kg, 12/25/19 19:59:00 EDT, Dry Weight Start Date: 12/25/19 Stop Date: 01/01/20 Status: Ordered hydrOXYzine hydrochloride 25 mg oral tablet See Instructions, PRN anxiety/panic. Take 1/2-1 tab PO up to 3x per day PRN anxiety/panic attacks.,# 30 tablet, 2 Refills, Maintenance, 11/20/19 10:59:00 EDT, [facility]/pharmacy #1026, 184.5, cm, :36:00 EDT, Height, 69.7, kg, 06/22/19 15:01:00 E... Start Date: 11/20/19 Status: Ordered PARoxetine 20 mg oral tablet 20 mg, 1, tablet, By Mouth, Daily, To replace paroxetine 10 mg. For anxiety and depression., # 30 tablet, Refills 2, Tot. Refills 2, Maintenance, 12/25/19 11:03:00 EDT, Route to Pharmacy Electronically, [facility]/pharmacy #1026, 184.5, cm, 11/20/19 8:36:00... Start Date: 12/25/19 Status: Ordered Problem List Condition Effective Dates Status Health Status Inform ant ADHD(Confirmed) Active Anxiety(Confirmed) Active Pectus excavatum(Confirmed) Active Results Radiology Reports * Exam Date Time Procedure Performing Provider Status 12/25/19 9:04 PM Hand Min 3 Views Right Boom Pendleton; Nikolas (Verified) Notes: (Hand Min 3 Views Right) Reason For Exam: Pain RESULT: Hand Min 3 Views Right Hand Min 3 Views Right CLINICAL INDICATION: Refer to EMR; Reason: Pain; Clinical Question(s): Fracture; Hx of Present Illness: Pt bit by unknown dog.; Other Objective Findings: Wound to middle finger, adipipose tissue exposed, still active bleeding, but not excessive. +CMS. Remainder of skin pwd, no acute distress noted.Resp even and unlabored, speaking in full clear sentences. Remainder of skin pwd, no acute distressnoted. Resp ev COMPARISONS: None TECHNIQUE: AP, lateral and oblique views of the right hand were obtained. FINDINGS: There is no fracture or dislocation. Normal radiocarpal alignment is maintained. Carpal joint spaces and bone contours are normal. MCP and IP joint spaces are maintained. No retained radiodense foreign body. IMPRESSION: No fracture, dislocation or foreign body. WSN: [id number] Ordering Physician: Rhea Ruffin Dictated By: Raz Sher MD Dictated Date/Time: 12/25/19 9:20 pm Reviewed By: Raz Sher MD Signed By: Raz Sher MD Signed Date/Time: 12/25/19 9:20 pm Transcribed By: EVERT Transcribed Date/Time: 12/25/19 9:16 pm Vital Signs Most recent to oldest [Reference Range]: 1 2 Height 186 cm (12/25/19 7:59 PM) 186 cm (12/25/19 7:49 PM) Weight 67.1 kg (12/25/19 7:59 PM) 67.1 kg (12/25/19 7:49 PM) Oxygen Saturation [94-100 %] 100 % (12/25/19 7:49 PM) Pulse Rate [55-90 bpm] 74 bpm (12/25/19 7:49 PM) Body Mass Index [18.5-24.99] 19.4 (12/25/19 7:49 PM) Blood Pressure [90-138/55-84 mm Hg] 144/ 96mm Hg *H* (12/25/19 7:49 PM) Respiratory Rate [16-30 br/min] 16 br/mi n (12/25/19 7:49 PM) Temperature [96.8-100.4 DegF] 98.3 DegF (12/25/19 7:49 PM) Mode of Delivery (Oxygen) Room air (12/25/19 7:49 PM) Blood pressure sites Arm, right (12/25/19 7:49 PM) Temperature Route Oral (12/25/19 7:49 PM) Dry Weight 67.1 kg (12/25/19 7:59 PM) 67.1 kg (12/25/19 7:49 PM) Weight Obtained Via Standing scale (12/25/19 7:49 PM) Dry Weight Obtained Via Standing scale (12/25/19 7:49 PM) Social History Social History Type Response Smoking Status Never (less than 100 in lifetime) entered on: 06/26/18 Sex
--- OUTSIDE RECORDS SUMMARY | 2023-11-01 03:25 | XMS_ITS | Continuity of Care Document ---
Author Organization [facility] Address [address] [place] [address]- Care Team Providers Care Labor And Delivery Nurse Name Role Phone Mart PIERRE, Negra Primary Care Physician [phone] Encounter [facility] [place] Date(s): 03/08/23 - 04/09/23 [facility] [address]- Attending Physician: Ruthann Galeana NP Admitting Physician: Ruthann Galeana NP Allergies, Adverse Reactions, Alerts No Known [...] right deltoid 2Result Comment: [07/31/2017] Given at [facility]. 3Result Comment: [03/21/2013] ORDER DR OLSON 4Admin Note: VIS GIVEN:12/19/2011 5Result Comment: [id number] injections into three injections. Left and right [...] tablet, 2 Refills, Maintenance, 11/20/19 10:59:00 EDT, [facility]/pharmacy #1026, 184.5, cm, 208:36:00 EDT, Height, 69.7, kg, 06/22/19 15:01:00 E... Start Date: 11/20/19 Status: Ordered PARoxetine 20 mg oral tablet 20 mg, 1, tablet, By Mouth, Daily, To replace paroxetine 10 mg. For anxiety and depression., # 30 tablet, Refills 2, Tot. Refills 2, Maintenance, 12/25/19 11:03:00 EDT, Route to Pharmacy Electronically, [facility]/pharmacy #1026, 184.5, cm, 11/20/19 8:36:00... Start Date: 12/25/19 Status: Ordered Problem List Condition Confirmation Course Effective Dates Status Health St atus Informant ADHD Confirmed Active Anxiety Confirmed Active Pectus excavatum Confirmed Active Social History Social History Type Response Smoking Status Never (less than 100 in lifetime) entered on: 06/26/18 Sex Patient Care team information Care Team Personnel Name: Ngera Cevallos NP Position: [facility] PCO Associate Professional Member Role: PCP Address: Address: [address] [place] [phone]- Name: Tracey Rodriguez Position: [facility] Outreach Member Role: Lifetime Consulting Physician Care Team Related Persons Name: GALEN TERRELL Address: home [address] [place] [id number] Name: BEVERLY MEZA Address: home [address] [place] [address]
--- OUTSIDE RECORDS SUMMARY | 2023-11-01 03:25 | XMS_ITS | Continuity of Care Document ---
Author Organization [facility] Address [address] [place] [address]- Care Team Providers Care Show Card Letterer Name Role Phone Negra Cevallos NP Primary Care Physician [place] [facility] [place] Date(s): 10/03/19 - 10/10/19 [facility]/[address] [address]- [facility] Attending Physician: Negra Cevallos NP Allergies, [...] 03/21/13 Given 1Result Comment: [07/31/2017] Given at [facility]. 2Result Comment: [03/21/2013] ORDER DR OLSON 3Admin Note: VIS GIVEN:12/19/2011 4Result Comment: right deltoid 5Result Comment: [id number] injections into three injections. Left and right [...]
--- OUTSIDE RECORDS SUMMARY | 2023-11-01 03:25 | XMS_ITS | Continuity of Care Document ---
Author Organization [facility] Address [address] [place] [address]- Care Team Providers Care Pipeline Operator Name Role Phone Mart PIERRE, Negra Primary Care Physician Encounter [facility] [place] Date(s): 08/19/19 - 09/19/19 [facility]/[address] [address]- [facility] Attending Physician: Aldo Aguilar MD, I Admitting Physician: Aldo Aguilar MD, I Allergies, Adverse Reactions, Alerts Substance Reaction Severity [...] 03/21/13 Given 1Result Comment: [07/31/2017] Given at [facility]. 2Result Comment: [03/21/2013] ORDER DR OLSON 3Admin Note: VIS GIVEN:12/19/2011 4Result Comment: right deltoid 5Result Comment: [id number] injections into three injections. Left and right [...]
--- OUTSIDE RECORDS SUMMARY | 2023-11-01 03:25 | XMS_ITS | Continuity of Care Document ---
Author Organization [facility] Address [address] [place] [address]- Care Team Providers Care Print Producer Name Role Phone Mart PIERRE, Negra Primary Care Physician [phone] Encounter [facility] [place] [place] Date(s): 11/20/19 - 01/23/20 [facility]/[address] [address]- [facility] Attending Physician: Negra Cevallos NP Admitting Physician: [...] deltoid 2Result Comment: [07/31/2017] Given at [facility]. 3Result Comment: [03/21/2013] ORDER DR OLSON 4Admin Note: VIS GIVEN:12/19/2011 5Result Comment: [id number] injections into three injections. Left and right [...] tablet, 2 Refills, Maintenance, 11/20/19 10:59:00 EDT, [facility]/pharmacy #[id number], 184.5, cm, 208:36:00 EDT, Height, 69.7, kg, 06/22/19 15:01:00 E... Start Date: 11/20/19 Status: Ordered PARoxetine 20 mg oral tablet 20 mg, 1, tablet, By Mouth, Daily, To replace paroxetine 10 mg. For anxiety and depression., # 30 tablet, Refills 2, Tot. Refills 2, Maintenance, 12/25/19 11:03:00 EDT, Route to Pharmacy Electronically, [facility]/pharmacy #[id number], 184.5, cm, 11/20/19 8:36:00... Start Date: 12/25/19 Status: Ordered Problem List Condition Effective Dates Status Health Status Inform ant ADHD(Confirmed) Active Anxiety(Confirmed) Active Pectus excavatum(Confirmed) Active Social History Social History Type Response Smoking Status Never (less than 100 in lifetime) entered on: 06/26/18 Sex
--- OUTSIDE RECORDS SUMMARY | 2023-11-01 03:25 | XMS_ITS | Continuity of Care Document ---
Author Organization [facility] Address Unknown Care Team Providers Care Home Office Claims Examiner Name Role Phone Mart PIERRE, Negra Primary Care Physician [phone] Encounter [facility] [place] Date(s): 03/17/21 - 04/16/21 [facility] Attending Physician: Abelardo PIERRE, Tamiko Marks Admitting Physician: Tamiko Zhou NP Allergies, Adverse Reactions, Alerts Substance Reaction [...] right deltoid 2Result Comment: [07/31/2017] Given at [facility]. 3Result Comment: [03/21/2013] ORDER DR OLSON 4Admin Note: VIS GIVEN:12/19/2011 5Result Comment: [id number] injections into three injections. Left and right [...] tablet, 2 Refills, Maintenance, 11/20/19 10:59:00 EDT, [facility]/pharmacy #1026, 184.5, cm, 208:36:00 EDT, Height, 69.7, kg, 06/22/19 15:01:00 E... Start Date: 11/20/19 Status: Ordered PARoxetine 20 mg oral tablet 20 mg, 1, tablet, By Mouth, Daily, To replace paroxetine 10 mg. For anxiety and depression., # 30 tablet, Refills 2, Tot. Refills 2, Maintenance, 12/25/19 11:03:00 EDT, Route to Pharmacy Electronically, [facility]/pharmacy #1026, 184.5, cm, 11/20/19 8:36:00... Start Date: 12/25/19 Status: Ordered Problem List Condition Effective Dates Status Health Status Inform ant ADHD(Confirmed) Active Anxiety(Confirmed) Active Pectus excavatum(Confirmed) Active Social History Social History Type Response Smoking Status Never (less than 100 in lifetime) entered on: 06/26/18 Sex
--- OUTSIDE RECORDS SUMMARY | 2023-11-01 03:25 | XMS_ITS | Continuity of Care Document ---
Author Organization [facility] Address Unknown Care Team Providers Care Instructor Bridge Name Role Phone Mart PIERRE, Negra Primary Care Physician Encounter [facility] Date(s): 05/18/21 - 06/18/21 [facility] Attending Physician: Francisco J Cheng MD Admitting Physician: Francisco J Cheng MD Referring Physician: Negra Cevallos NP Allergies, Adverse Reactions, [...] Comment: [07/31/2017] Given at [facility]. 3Result Comment: [03/21/2013] ORDER DR OLSON 4Admin Note: VIS GIVEN:12/19/2011 5Result Comment: [id number] injections into three injections. Left and right [...] 2 Refills, Maintenance, 11/20/19 10:59:00 EDT, [facility]/pharmacy #1026, 184.5, cm, 208:36:00 EDT, Height, 69.7, kg, 06/22/19 15:01:00 E... Start Date: 11/20/19 Status: Ordered PARoxetine 20 mg oral tablet 20 mg, 1, tablet, By Mouth, Daily, To replace paroxetine 10 mg. For anxiety and depression., # 30 tablet, Refills 2, Tot. Refills 2, Maintenance, 12/25/19 11:03:00 EDT, Route to Pharmacy Electronically, [facility]/pharmacy #1026, 184.5, cm, 11/20/19 8:36:00... Start Date: 12/25/19 Status: Ordered predniSONE 20 mg oral tablet 3 tablet = 60 mg, By Mouth, Daily, # 21 tablet, 0 Refills, Acute 04/29/22 10:44:00 EST, 05/16/21 10:44:00 EST, Tablet, [facility]/pharmacy #[id number], Partial fill upon patient request if [...]
--- OUTSIDE RECORDS SUMMARY | 2023-11-01 03:25 | XMS_ITS | Continuity of Care Document ---
Author Organization [facility] Address [address] [place] [address]- Care Team Providers Care Senior Technical Business Analyst Name Role Phone Mart PIERRE, Negra Primary Care Physician Encounter [facility] Date(s): 12/26/19 - 02/13/20 [facility]/[address] [address]- [facility] Attending Physician: Negra Cevallos NP Admitting Physician: [...] right deltoid 2Result Comment: [07/31/2017] Given at [facility]. 3Result Comment: [03/21/2013] ORDER DR OLSON 4Admin Note: VIS GIVEN:12/19/2011 5Result Comment: [id number] injections into three injections. Left and right [...] tablet, 2 Refills, Maintenance, 11/20/19 10:59:00 EDT, [facility]/pharmacy #1026, 184.5, cm, 208:36:00 EDT, Height, 69.7, kg, 06/22/19 15:01:00 E... Start Date: 11/20/19 Status: Ordered PARoxetine 20 mg oral tablet 20 mg, 1, tablet, By Mouth, Daily, To replace paroxetine 10 mg. For anxiety and depression., # 30 tablet, Refills 2, Tot. Refills 2, Maintenance, 12/25/19 11:03:00 EDT, Route to Pharmacy Electronically, [facility]/pharmacy #1026, 184.5, cm, 11/20/19 8:36:00... Start Date: 12/25/19 Status: Ordered Problem List Condition Effective Dates Status Health Status Inform ant ADHD(Confirmed) Active Anxiety(Confirmed) Active Pectus excavatum(Confirmed) Active Social History Social History Type Response Smoking Status Never (less than 100 in lifetime) entered on: 06/26/18 Sex
--- OUTSIDE RECORDS SUMMARY | 2023-11-01 03:25 | XMS_ITS | Continuity of Care Document ---
Author Organization [facility] ter Address [address] [place] [address]- Care Team Providers Care Cyber Operator Name Role Phone Mart PIERRE, Negra Primary Care Physician Encounter [facility] [place] Date(s): 01/14/20 - 01/14/[address] [address]- [facility] Discharge Disposition: A-D/C Walkout Attending Physician: Not on Staff, Attending MD Admitting Physician: Not on Staff, Admitting MD Referring Physician: Not on Staff, Referring [...] deltoid 2Result Comment: [07/31/2017] Given at [facility]. 3Result Comment: [03/21/2013] ORDER DR OLSON 4Admin Note: VIS GIVEN:12/19/2011 5Result Comment: [id number] injections into three injections. Left and right [...] 2 Refills, Maintenance, 11/20/19 10:59:00 EDT, [facility]/pharmacy #1026, 184.5, cm, 208:36:00 EDT, Height, 69.7, kg, 06/22/19 15:01:00 E... Start Date: 11/20/19 Status: Ordered PARoxetine 20 mg oral tablet 20 mg, 1, tablet, By Mouth, Daily, To replace paroxetine 10 mg. For anxiety and depression., # 30 tablet, Refills 2, Tot. Refills 2, Maintenance, 12/25/19 11:03:00 EDT, Route to Pharmacy Electronically, [facility]/pharmacy #1026, 184.5, cm, 11/20/19 8:36:00... Start Date: 12/25/19 Status: Ordered Problem List Condition Effective Dates Status Health Status Inform ant ADHD(Confirmed) Active Anxiety(Confirmed) Active Pectus excavatum(Confirmed) Active Social History Social History Type Response Smoking Status Never (less than 100 in lifetime) entered on: 06/26/18 Sex
--- OUTSIDE RECORDS SUMMARY | 2023-11-01 03:26 | XMS_ITS | Continuity of Care Document ---
Author Organization [facility] Address [address] [place] [address]- Care Team Providers Care Presbyterian Clergy Name Role Phone Negra Cevallos NP Primary Care Physician [phone] [place] [facility] Date(s): 11/05/19 - 11/12/19 [facility]/[address] [address]- [facility] Attending Physician: Negra Cevallos NP Allergies, Adverse [...] 03/21/13 Given 1Result Comment: [07/31/2017] Given at [facility]. 2Result Comment: [03/21/2013] ORDER DR OLSON 3Admin Note: VIS GIVEN:12/19/2011 4Result Comment: right deltoid 5Result Comment: [id number] injections into three injections. Left and right [...]
--- OUTSIDE RECORDS SUMMARY | 2023-11-01 03:26 | XMS_ITS | Continuity of Care Document ---
Author Organization [facility] Address [address] [place] [address]- Care Team Providers Care Annual Campaign Manager Name Role Phone Mart PIERRE, Negra Primary Care Physician Encounter [facility] Date(s): 08/22/23 - 09/28/23 [facility]/[address] [address]- Attending Physician: Ruthann Galeana NP Admitting Physician: [...] right deltoid 2Result Comment: [07/31/2017] Given at [facility]. 3Result Comment: [03/21/2013] ORDER DR OLSON 4Admin Note: VIS GIVEN:12/19/2011 5Result Comment: [id number] injections into three injections. Left and right [...] tablet, 2 Refills, Maintenance, 11/20/19 10:59:00 EDT, [facility]/pharmacy #[id number], 184.5, cm, 208:36:00 EDT, Height, 69.7, kg, 06/22/19 15:01:00 E... Start Date: 11/20/19 Status: Ordered PARoxetine 20 mg oral tablet 20 mg, 1, tablet, By Mouth, Daily, To replace paroxetine 10 mg. For anxiety and depression., # 30 tablet, Refills 2, Tot. Refills 2, Maintenance, 12/25/19 11:03:00 EDT, Route to Pharmacy Electronically, [facility]/pharmacy #[id number], 184.5, cm, 11/20/19 8:36:00... Start Date: 12/25/19 Status: Ordered Problem List Condition Confirmation Course Effective Dates Status Health St atus Informant ADHD Confirmed Active Anxiety Confirmed Active Pectus excavatum Confirmed Active Social History Social History Type Response Smoking Status Never (less than 100 in lifetime) entered on: 06/26/18 Sex Patient Care team information Care Team Personnel Name: Negra Cevallos NP Position: [facility] PCO Associate Professional Member Role: PCP Address: Address: [address] [place] [id number]- Name: Tracey Rodriguez Position: [facility] Outreach Member Role: Lifetime Consulting Physician Care Team Related Persons Name: GALEN TERRELL Address: home [address] [place] [id number] Name: BEVERLY MEZA Address: home [address] [place] [address]
--- OUTSIDE RECORDS SUMMARY | 2023-11-01 03:26 | XMS_ITS | Continuity of Care Document ---
Author Organization [facility] ter Address [address] [place] [address]- Care Team Providers Care Manufacturing Production Manager Name Role Phone Mart PIERRE, Negra Primary Care Physician Encounter [facility] Date(s): 06/22/19 - 06/22/[address] [address]- [facility] Encounter Diagnosis Headache(Final) - 06/22/19 Discharge Disposition: A-D/C Home Attending Physician: Chery Jenkins MD Admitting Physician: Chery Jenkins MD Referring Physician: Not on Staff, Referring [...] 03/21/13 Given 1Result Comment: [07/31/2017] Given at [facility]. 2Result Comment: [03/21/2013] ORDER DR OLSON 3Admin Note: VIS GIVEN:12/19/2011 4Result Comment: right deltoid 5Result Comment: [id number] injections into three injections. Left and right anteriorlateral thigh and left deltoid. Performed by this nurse and Valencia RN 6Result Comment: [09/16/2013] Ordered by Day Olson MD 7Result Comment: [05/28/2013] Ordered by [facility] 8Result Comment: [03/21/2013] ORDER DR OLSON Medications melatonin 3 mg oral tablet See Instructions, 1 tablet By Mouth before bed time QHS 1 month, # 30 tablet, 1 Refills, Maintenance, 01/09/18 12:00:43 EDT Start Date: 01/09/18 Status: Ordered sertraline 100 mg oral tablet 1 tablet = 100 mg, By Mouth, Daily, # 30 tablet, 2 Refills, Maintenance, 06/26/18 8:31:37 EST, Tablet Start Date: 06/26/18 Status: Ordered Problem List Condition Effective Dates Status Health Status Inform ant ADHD(Confirmed) Active Anxiety(Confirmed) Active Pectus excavatum(Confirmed) Active Results Radiology Reports * Exam Date Time Procedure Performing Provider Status 06/22/19 10:14 AM Chest 2 Views Frontal and Lat Jimbo Foley (Verified) Notes: (Chest 2 Views Frontal and Lat) Reason For Exam: Shortness of Breath RESULT: Chest 2 Views Frontal and Lat Chest 2 Views Frontal and Lat Reason: Shortness of Breath; Clinical Question(s): Pneumonia; COMPARISON: 3 11/24/2015 and 12/17/2014. FINDINGS: LINES AND TUBES: None. LUNGS AND PLEURA: Clear lungs. Normal pulmonary vascularity. No pleural effusion. No pneumothorax. HEART, MEDIASTINUM AND MARIO: Heart is normal in size. Normal mediastinal and hilar contour. BONES AND SOFT TISSUES: No acute abnormality. IMPRESSION: No acute abnormality. I have personally reviewed the images and I agree with this report. WSN: [id number] Dictated By: Fabian Adam MD Dictated Date/Time: 06/22/19 10:42 a Reviewed By: Nilson Cash MD Signed By: Nilson Cash MD Signed Date/Time: 06/22/19 10:47 am Transcribed By: EVERT Transcribed Date/Time: 06/22/19 10:16 am Vital Signs Most recent to oldest [Reference Range]: 1 2 3 Weight 69.7 kg (06/22/19 3:01 PM) 69.7 kg (06/22/19 9:28 AM) 69.7 kg (06/22/19 8:45 AM) Oxygen Saturation [94-100 %] 97 % (06/22/19 3:01 PM) 100 % (06/22/19 8:45 AM) 100 % (06/22/19 8:39 AM) Pulse Rate [55-90 bpm] 115 bpm *H* (06/22/19 3:01 PM) 95 bpm *H* (06/22/19 8:45 AM) 121 bpm *H* (06/22/19 8:39 AM) Blood Pressure [90-138/55-84 mm Hg] 119/62mm Hg (06/22/19 3:01 PM) 131/71mm Hg (06/22/19 8:45 AM) Respiratory Rate [16-30 br/min] 16 br/min (06/22/19 3:01 PM) 18 br/min (06/22/19 8:45 AM) 20 br/min (06/22/19 8:39 AM) Temperature [96.8-100.4 DegF] 97.6 DegF (06/22/19 8:45 AM) Mode of Delivery (Oxygen) Room air (06/22/19 3:01 PM) Room air (06/22/19 8:45 AM) Room air (06/22/19 8:39 AM) Blood pressure sites Arm, left (06/22/19 3:01 PM) Arm, right (06/22/19 8:45 AM) Temperature Route Oral (06/22/19 8:45 AM) Dry Weight 69.7 kg (06/22/19 3:01 PM) 69.7 kg (06/22/19 9:28 AM) 69.7 kg (06/22/19 8:45 AM) Weight Obtained Via Standing scale (06/22/19 8:45 AM) Dry Weight Obtained Via Standing scale (06/22/19 8:45 AM) Social History Social History Type Response Smoking Status Never (less than 100 in lifetime) entered on: 06/26/18 Sex
--- OUTSIDE RECORDS SUMMARY | 2023-11-01 03:26 | XMS_ITS | Continuity of Care Document ---
Author Organization [facility] Address [address] [place] [address]- Care Team Providers Care Crew Leader Name Role Phone Mart PIERRE, Negra Primary Care Physician [phone] Encounter [facility] R [id number] Date(s): 10/10/22 - 11/11/22 [facility]/[place] [address]- Attending Physician: Not on Staff, Attending MD Allergies, Adverse Reactions, Alerts No Known [...] OLSON 4Admin Note: VIS GIVEN:12/19/2011 5Result Comment: [id number] injections into three injections. Left and right [...] Team Personnel Name: Negra Cevallos NP Position: [facility] PCO Associate Professional Member Role: PCP Address: Address: [address] [place] [address]- Name: Tracey Rodriguez Position: [facility] Outreach Member Role: Lifetime Consulting Physician Care Team Related Persons Name: AARON TERRELL Address: home [address] [place] [address] Name: BEVERLY MEZA Address: home [address] [place] [address]
--- OUTSIDE RECORDS SUMMARY | 2023-11-01 03:26 | XMS_ITS | Continuity of Care Document ---
Author Organization [facility] ter Address [address] [place] [address]- Care Team Providers Care Cold Meat Chef Name Role Phone Mart PIERRE, Negra Primary Care Physician [place] [facility] [place] 01/14/20 - 01/14/[address] [address]- [facility] Encounter Diagnosis Rabies, need for prophylactic vaccination against(Final) - 01/14/20 Discharge Disposition: A-D/C Home Attending Physician: Praveen Quinn MD Admitting Physician: Praveen Quinn MD Referring Physician: Not on Staff, Referring [...] OLSON 4Admin Note: VIS GIVEN:12/19/2011 5Result Comment: [id number] injections into three injections. Left and right [...] 2 Refills, Maintenance, 11/20/19 10:59:00 EDT, [facility]/pharmacy #1026, 184.5, cm, 208:36:00 EDT, Height, 69.7, kg, 06/22/19 15:01:00 E... Start Date: 11/20/19 Status: Ordered PARoxetine 20 mg oral tablet 20 mg, 1, tablet, By Mouth, Daily, To replace paroxetine 10 mg. For anxiety and depression., # 30 tablet, Refills 2, Tot. Refills 2, Maintenance, 12/25/19 11:03:00 EDT, Route to Pharmacy Electronically, [facility]/pharmacy #1026, 184.5, cm, 11/20/19 8:36:00... Start Date: 12/25/19 Status: Ordered Problem List Condition Effective Dates Status Health Status Inform ant ADHD(Confirmed) Active Anxiety(Confirmed) Active Pectus excavatum(Confirmed) Active Vital Signs Most recent to oldest [Reference Range]: 1 Oxygen Saturation [94-100 %] 99 % (01/14/20 8:42 PM) Pulse Rate [55-90 bpm] 71 bpm (01/14/20 8:42 PM) Blood Pressure [90-138/55-84 mm Hg] 147/ 86mm Hg *H* (01/14/20 8:42 PM) Respiratory Rate [16-30 br/min] 18 br/mi n (01/14/20 8:42 PM) Temperature [96.8-100.4 DegF] 98.8 DegF (01/14/20 8:42 PM) Mode of Delivery (Oxygen) Room air (01/14/20 8:42 PM) Blood pressure sites Arm, right (01/14/20 8:42 PM) Social History Social History Type Response Smoking Status Never (less than 100 in lifetime) entered on: 06/26/18 Sex
--- OUTSIDE RECORDS SUMMARY | 2023-11-01 03:26 | XMS_ITS | Continuity of Care Document ---
Author Organization [facility] ter Address [address] [place] [address]- Care Team Providers Care Electrician Supervisor Airplane Name Role Phone Mart PIERRE, Negra Primary Care Physician [phone] Encounter [facility] [place] Date(s): 02/05/21 - 02/06/[address] [address]- Discharge Disposition: A-D/C Walkout Attending Physician: Not [...] right deltoid 2Result Comment: [07/31/2017] Given at [facility]. 3Result Comment: [03/21/2013] ORDER DR OLSON 4Admin Note: VIS GIVEN:12/19/2011 5Result Comment: [id number] injections into three injections. Left and right [...] tablet, 2 Refills, Maintenance, 11/20/19 10:59:00 EDT, [facility]/pharmacy #1026, 184.5, cm, 208:36:00 EDT, Height, 69.7, kg, 06/22/19 15:01:00 E... Start Date: 11/20/19 Status: Ordered PARoxetine 20 mg oral tablet 20 mg, 1, tablet, By Mouth, Daily, To replace paroxetine 10 mg. For anxiety and depression., # 30 tablet, Refills 2, Tot. Refills 2, Maintenance, 12/25/19 11:03:00 EDT, Route to Pharmacy Electronically, [facility]/pharmacy #1026, 184.5, cm, 11/20/19 8:36:00... Start Date: 12/25/19 Status: Ordered Problem List Condition Effective Dates Status Health Status Inform ant ADHD(Confirmed) Active Anxiety(Confirmed) Active Pectus excavatum(Confirmed) Active Vital Signs Most recent to oldest [Reference Range]: 1 Oxygen Saturation [94-100 %] 99 % (02/05/21 5:30 PM) Pulse Rate [55-90 bpm] 98 bpm *H* (02/05/21 5:30 PM) Blood Pressure [90-138/55-84 mm Hg] 116/ 72mm Hg (02/05/21 5:30 PM) Respiratory Rate [16-30 br/min] 14 br/mi n *L* (02/05/21 5:30 PM) Temperature [96.8-100.4 DegF] 98.1 DegF (02/05/21 5:30 PM) Mode of Delivery (Oxygen) Room air (02/05/21 5:30 PM) Blood pressure sites Arm, left (02/05/21 5:30 PM) Temperature Route Oral (02/05/21 5:30 PM) Weight Obtained Via uto (02/05/21 5:25 PM) Dry Weight Obtained Via uto (02/05/21 5:25 PM) Social History Social History Type Response Smoking Status Never (less than 100 in lifetime) entered on: 06/26/18 Sex
--- OUTSIDE RECORDS SUMMARY | 2023-11-01 03:26 | XMS_ITS | Continuity of Care Document ---
Author Organization [facility] Address [address] [place] [address]- Care Team Providers Care Public Relations Account Supervisor Name Role Phone Mart PIERRE, Negra Primary Care Physician [place] [facility] Date(s): 04/11/23 - 05/11/23 [facility]/[place] [address]- Attending Physician: Roberto Alcantar Admitting Physician: AdmtrRoberto Referring Physician: Admtr, Ar8 Allergies, Adverse Reactions, [...] OLSON 4Admin Note: VIS GIVEN:12/19/2011 5Result Comment: [id number] injections into three injections. Left and right [...] tablet, 2 Refills, Maintenance, 11/20/19 10:59:00 EDT, [facility]/pharmacy #1026, 184.5, cm, 208:36:00 EDT, Height, 69.7, kg, 06/22/19 15:01:00 E... Start Date: 11/20/19 Status: Ordered PARoxetine 20 mg oral tablet 20 mg, 1, tablet, By Mouth, Daily, To replace paroxetine 10 mg. For anxiety and depression., # 30 tablet, Refills 2, Tot. Refills 2, Maintenance, 12/25/19 11:03:00 EDT, Route to Pharmacy Electronically, [facility]/pharmacy #1026, 184.5, cm, 11/20/19 8:36:00... Start Date: 12/25/19 Status: Ordered Problem List Condition Confirmation Course Effective Dates Status Health St atus Informant ADHD Confirmed Active Anxiety Confirmed Active Pectus excavatum Confirmed Active Social History Social History Type Response Smoking Status Never (less than 100 in lifetime) entered on: 06/26/18 Sex Patient Care team information Care Team Personnel Name: Negra Cevallos NP Position: [facility] PCO Associate Professional Member Role: PCP Address: Address: [address] [place] [address]- Name: Tarcey Rodriguez Position: [facility] Outreach Member Role: Lifetime Consulting Physician Care Team Related Persons Name: TERRELL AARON Address: home [address] [place] [address] Name: BEVERLY MEZA Address: home [address] [place] [address]
--- OUTSIDE RECORDS SUMMARY | 2023-11-01 03:26 | XMS_ITS | Continuity of Care Document ---
Author Organization [facility] Address [address] [place] [address]- Care Team Providers Care Housekeeping Lead Name Role Phone Mart INTERMEDIATE ACCOUNTANT, Negra Primary Care Physician Encounter [facility] Date(s): 03/06/23 - 05/11/23 [facility]/[place] [address]- Attending Physician: Not on Staff, Attending MD [...] right deltoid 2Result Comment: [07/31/2017] Given at [facility]. 3Result Comment: [03/21/2013] ORDER DR OLSON 4Admin Note: VIS GIVEN:12/19/2011 5Result Comment: [id number] injections into three injections. Left and right [...] tablet, 2 Refills, Maintenance, 11/20/19 10:59:00 EDT, [facility]/pharmacy #[id number], 184.5, cm, 208:36:00 EDT, Height, 69.7, kg, 06/22/19 15:01:00 E... Start Date: 11/20/19 Status: Ordered PARoxetine 20 mg oral tablet 20 mg, 1, tablet, By Mouth, Daily, To replace paroxetine 10 mg. For anxiety and depression., # 30 tablet, Refills 2, Tot. Refills 2, Maintenance, 12/25/19 11:03:00 EDT, Route to Pharmacy Electronically, [facility]/pharmacy #[id number], 184.5, cm, 11/20/19 8:36:00... Start Date: 12/25/19 Status: Ordered Problem List Condition Confirmation Course Effective Dates Status Health St atus Informant ADHD Confirmed Active Anxiety Confirmed Active Pectus excavatum Confirmed Active Social History Social History Type Response Smoking Status Never (less than 100 in lifetime) entered on: 06/26/18 Sex Patient Care team information Care Team Personnel Name: Negra Cevallos NP Position: [facility] Associate Professional Member Role: PCP Address: Address: [address] [place] [address]- Name: Tracey Rodriguez Position: [facility] Outreach Member Role: Lifetime Consulting Physician Care Team Related Persons Name: TERRELL AARON Address: home [address] [place] [address] Name: BEVERLY MEZA Address: home [address] [place] [address]
--- OUTSIDE RECORDS SUMMARY | 2023-11-01 03:26 | XMS_ITS | Continuity of Care Document ---
Author Organization [facility] Address [address] [place] [address]- Care Team Providers Care Pressure Tank Operator Name Role Phone Mart PIERRE, Negra Primary Care Physician Encounter [facility] Date(s): 06/13/23 - 08/25/23 [facility]/[place] [address]- Attending Physician: Not on Staff, Attending MD [...] right deltoid 2Result Comment: [07/31/2017] Given at [facility]. 3Result Comment: [03/21/2013] ORDER DR OLSON 4Admin Note: VIS GIVEN:12/19/2011 5Result Comment: [id number] injections into three injections. Left and right [...] Team Personnel Name: Negra Cevallos NP Position: [facility] Associate Professional Member Role: PCP Address: Address: [address] [place] [address]- Name: Tracey Rodriguez Position: [facility] Outreach Member Role: Lifetime Consulting Physician Care Team Related Persons Name: AARONTERRELL Emery Address: home [address] [place] [address] Name: BEVERLY MEZA Address: home [address] [place] [address]
--- OUTSIDE RECORDS SUMMARY | 2023-11-01 03:26 | XMS_ITS | Continuity of Care Document ---
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 3Result Comment: [03/21/2013] ORDER DR OLSON 4Admin Note: VIS GIVEN:12/19/2011 5Result Comment: [id number] injections into three injections. Left and right [...] tablet, 2 Refills, Maintenance, 11/20/19 10:59:00 EDT, [facility]/pharmacy #[id number], 184.5, cm, 208:36:00 EDT, Height, 69.7, kg, 06/22/19 15:01:00 E... Start Date: 11/20/19 Status: Ordered PARoxetine 20 mg oral tablet 20 mg, 1, tablet, By Mouth, Daily, To replace paroxetine 10 mg. For anxiety and depression., # 30 tablet, Refills 2, Tot. Refills 2, Maintenance, 12/25/19 11:03:00 EDT, Route to Pharmacy Electronically, [facility]/pharmacy #[id number], 184.5, cm, 11/20/19 8:36:00... Start Date: 12/25/19 Status: Ordered Problem List Condition Effective Dates Status Health Status Inform ant ADHD(Confirmed) Active Anxiety(Confirmed) Active Pectus excavatum(Confirmed) Active Vital Signs Most recent to oldest [Reference Range]: 1 2 Height 183 cm (01/06/20 6:20 PM) Weight 67.1 kg (01/06/20 6:20 PM) Oxygen Saturation [94-100 %] 99 % (01/06/20 7:40 PM) 100 % (01/06/20 6:20 PM) Pulse Rate [55-90 bpm] 63 bpm (01/06/20 7:40 PM) 66 bpm (01/06/20 6:20 PM) Body Mass Index [18.5-24.99] 20.04 (01/06/20 6:20 PM) Blood Pressure [90-138/55-84 mm Hg] 139/ 80mm Hg *H* (01/06/20 7:40 PM) 137/81mm Hg (01/06/20 6:20 PM) Respiratory Rate [16-30 br/min] 16 br/mi n (01/06/20 7:40 PM) 16 br/min (01/06/20 6:20 PM) Temperature [96.8-100.4 DegF] 98.2 DegF (01/06/20 7:40 PM) 98.0 DegF (01/06/20 6:20 PM) Mode of Delivery (Oxygen) Room air (01/06/20 7:40 PM) Room air (01/06/20 6:20 PM) Blood pressure sites Arm, left (01/06/20 7:40 PM) Arm, left (01/06/20 6:20 PM) Temperature Route Oral (01/06/20 7:40 PM) Oral (01/06/20 6:20 PM) Dry Weight 67.1 kg (01/06/20 6:20 PM) Weight Obtained Via Standing scale (01/06/20 6:20 PM) Dry Weight Obtained Via Standing scale (01/06/20 6:20 PM) Social History Social History Type Response Smoking Status Never (less than 100 in lifetime) entered on: 06/26/18 Sex
--- OUTSIDE RECORDS SUMMARY | 2023-11-01 03:26 | XMS_ITS | Continuity of Care Document ---
Author Organization [facility] Address Unknown Care Team Providers Care Swimming Pool Maintenance Name Role Phone Mart PIERRE, Negra Primary Care Physician Encounter [facility] Date(s): 04/14/21 - 05/15/21 [facility] Attending Physician: Negra Cevallos NP Admitting [...] OLSON 4Admin Note: VIS GIVEN:12/19/2011 5Result Comment: [id number] injections into three injections. Left and right anteriorlateral thigh and left deltoid. Performed by this nurse and Valencia MURRAY 6Result Comment: [09/16/2013] Ordered by Day Olson MD 7Result Comment: [05/28/2013] Ordered by Wesley 8Result Comment: [03/21/2013] ORDER DR OLSON Medications Augmentin 875 mg-125 mg oral tablet 1 tablet, By Mouth, Every 12 hours, for 7 days, # 14 tablet, 0 Refills, Acute 05/21/21 13:19:00 EST, 05/14/21 13:19:00 EST, Tablet, [facility]/pharmacy #[id number], Partial fill upon patient request if the prescription is for a schedule II opioid drug., 183, cm, 1... Start Date: 05/14/21 Stop Date: 05/21/21 Status: Ordered hydrOXYzine hydrochloride 25 mg oral tablet See Instructions, PRN anxiety/panic. Take 1/2-1 tab PO up to 3x per day PRN anxiety/panic attacks.,# 30 tablet, 2 Refills, Maintenance, 11/20/19 10:59:00 EDT, [facility]/pharmacy #[id number], 184.5, cm, :36:00 EDT, Height, 69.7, kg, 06/22/19 15:01:00 E... Start Date: 11/20/19 Status: Ordered PARoxetine 20 mg oral tablet 20 mg, 1, tablet, By Mouth, Daily, To replace paroxetine 10 mg. For anxiety and depression., # 30 tablet, Refills 2, Tot. Refills 2, Maintenance, 12/25/19 11:03:00 EDT, Route to Pharmacy Electronically, [facility]/pharmacy #1026, 184.5, cm, 11/20/19 8:36:00... Start Date: 12/25/19 Status: Ordered Problem List Condition Effective Dates Status Health Status Inform ant ADHD(Confirmed) Active Anxiety(Confirmed) Active Pectus excavatum(Confirmed) Active Social History Social History Type Response Smoking Status Never (less than 100 in lifetime) entered on: 06/26/18 Sex
--- OUTSIDE RECORDS SUMMARY | 2023-11-01 03:26 | XMS_ITS | Continuity of Care Document ---
Author Organization [facility] Address [address] [place] [address]- Care Team Providers Care Foreman/Pile Driving And Erection Name Role Phone Mart PIERRE, Negra Primary Care Physician Encounter [facility] Date(s): 03/10/23 - 04/09/23 [facility]/[place] [address]- Attending Physician: Roberto Alcantar Admitting Physician: AdmtrRoberto [...] OLSON 4Admin Note: VIS GIVEN:12/19/2011 5Result Comment: [id number] injections into three injections. Left and right [...] 2 Refills, Maintenance, 11/20/19 10:59:00 EDT, [facility]/pharmacy #1026, 184.5, cm, 208:36:00 EDT, Height, 69.7, kg, 06/22/19 15:01:00 E... Start Date: 11/20/19 Status: Ordered PARoxetine 20 mg oral tablet 20 mg, 1, tablet, By Mouth, Daily, To replace paroxetine 10 mg. For anxiety and depression., # 30 tablet, Refills 2, Tot. Refills 2, Maintenance, 12/25/19 11:03:00 EDT, Route to Pharmacy Electronically, [facility]/pharmacy #1026, 184.5, cm, 11/20/19 8:36:00... Start Date: 12/25/19 Status: Ordered Problem List Condition Confirmation Course Effective Dates Status Health St atus Informant ADHD Confirmed Active Anxiety Confirmed Active Pectus excavatum Confirmed Active Social History Social History Type Response Smoking Status Never (less than 100 in lifetime) entered on: 06/26/18 Sex Patient Care team information Care Team Personnel Name: Negra Cevallos NP Position: [facility] PCO Associate Professional Member Role: PCP Address: Address: [address] [place] [address]- Name: Tracey Rodriguez Position: [facility] Outreach Member Role: Lifetime Consulting Physician Care Team Related Persons Name: TERRELL AARON Address: home [address] [place] [address] Name: BEVERLY MEZA Address: home [address] [place] [address]
--- OUTSIDE RECORDS SUMMARY | 2023-11-01 03:26 | XMS_ITS | Continuity of Care Document ---
Author Organization [facility] Address [address] [place] [address]- Care Team Providers Care Wine Cellar Worker Name Role Phone Mart PIERRE, Negra Primary Care Physician [place] [facility] Date(s): 11/10/22 - 12/10/22 [facility]/[place] [address]- Attending Physician: Abelardo PIERRE, Tamiko Marks Admitting Physician: Abelardo PIERRE, Tamiko Marks Allergies, Adverse Reactions, Alerts No Known Allergies [...] OLSON 4Admin Note: VIS GIVEN:12/19/2011 5Result Comment: [id number] injections into three injections. Left and right [...] tablet, 2 Refills, Maintenance, 11/20/19 10:59:00 EDT, [facility]/pharmacy #1026, 184.5, cm, 208:36:00 EDT, Height, 69.7, kg, 06/22/19 15:01:00 E... Start Date: 11/20/19 Status: Ordered PARoxetine 20 mg oral tablet 20 mg, 1, tablet, By Mouth, Daily, To replace paroxetine 10 mg. For anxiety and depression., # 30 tablet, Refills 2, Tot. Refills 2, Maintenance, 12/25/19 11:03:00 EDT, Route to Pharmacy Electronically, [facility]/pharmacy #1026, 184.5, cm, 11/20/19 8:36:00... Start Date: 12/25/19 Status: Ordered Problem List Condition Confirmation Course Effective Dates Status Health St atus Informant ADHD Confirmed Active Anxiety Confirmed Active Pectus excavatum Confirmed Active Social History Social History Type Response Smoking Status Never (less than 100 in lifetime) entered on: 06/26/18 Sex Patient Care team information Care Team Personnel Name: Negra Cevallos NP Position: [facility] Associate Professional Member Role: PCP Address: Address: [address] [place] [address]- Name: Tracey Rodriguez Position: [facility] Outreach Member Role: Lifetime Consulting Physician Care Team Related Persons Name: TERRELL AARON Address: home [address] [place] [phone] Name: BEVERLY MEZA Address: home [address] [place] [address]
--- OUTSIDE RECORDS SUMMARY | 2023-11-01 03:26 | XMS_ITS | Continuity of Care Document ---
Author Organization [facility] Address [address] [place] [address]- Care Team Providers Care Fish Liver Sorter Name Role Phone Negra Cevallos NP Primary Care Physician [phone] Encounter [id number] Date(s): 11/20/19 - 12/20/19 [facility] [address] [address] [place] Attending Physician: Admtr, Vadim8 Admitting Physician: Admtr, Vadim8 Referring Physician: Admtr, Ar8 Allergies, Adverse Reactions, [...] 03/21/13 Given 1Result Comment: [07/31/2017] Given at [facility]. 2Result Comment: [03/21/2013] ORDER DR OLSON 3Admin Note: VIS GIVEN:12/19/2011 4Result Comment: right deltoid 5Result Comment: [id number] injections into three injections. Left and right [...] tablet, 2 Refills, Maintenance, 11/20/19 10:59:00 EDT, [facility]/pharmacy #1026, 184.5, cm, 208:36:00 EDT, Height, 69.7, kg, 06/22/19 15:01:00 E... Start Date: 11/20/19 Status: Ordered PARoxetine 10 mg oral tablet 10 mg, 1, tablet, By Mouth, Daily, For mood. To replace sertraline. Take at bedtime., # 30 tablet, Refills 2, Tot. Refills 2, Maintenance, 11/20/19 11:01:00 EDT, Route to Pharmacy Electronically, [facility]/pharmacy #1026, 184.5, cm, 11/20/19 8:36:00 EDT, He... Start Date: 11/20/19 Status: Ordered Problem List Condition Effective Dates Status Health Status Inform ant ADHD(Confirmed) Active Anxiety(Confirmed) Active Pectus excavatum(Confirmed) Active Social History Social History Type Response Smoking Status Never (less than 100 in lifetime) entered on: 06/26/18 Sex
--- OUTSIDE RECORDS SUMMARY | 2023-11-01 03:26 | XMS_ITS | Continuity of Care Document ---
Author Organization [facility] Address [address] [place] [address]- Care Team Providers Care Warehouse Distribution Manager Name Role Phone Mart PIERRE, Negra Primary Care Physician Encounter [facility] Date(s): 06/21/23 - 07/30/23 [facility]/[place] [address]- Attending Physician: Erica Choudhary MD Admitting Physician: [...] OLSON 4Admin Note: VIS GIVEN:12/19/2011 5Result Comment: [id number] injections into three injections. Left and right [...] tablet, 2 Refills, Maintenance, 11/20/19 10:59:00 EDT, [facility]/pharmacy #1026, 184.5, cm, 208:36:00 EDT, Height, 69.7, kg, 06/22/19 15:01:00 E... Start Date: 11/20/19 Status: Ordered PARoxetine 20 mg oral tablet 20 mg, 1, tablet, By Mouth, Daily, To replace paroxetine 10 mg. For anxiety and depression., # 30 tablet, Refills 2, Tot. Refills 2, Maintenance, 12/25/19 11:03:00 EDT, Route to Pharmacy Electronically, [facility]/pharmacy #1026, 184.5, cm, 11/20/19 8:36:00... Start [...] Associate Professional Member Role: PCP Address: Address: [address] [place] [address]- Name: Tracey Rodriguez Position: [facility] Outreach Member Role: Lifetime Consulting Physician Care Team Related Persons Name: GALEN TERRELL Address: home [address] [place] [phone] Name: BEVERLY MEZA Address: home [address] [place] [address]
--- OUTSIDE RECORDS SUMMARY | 2023-11-01 03:27 | XMS_ITS | Continuity of Care Document ---
Author Organization [facility] Address Unknown Care Team Providers Care Marketing Sales Manager Name Role Phone Mart PIERRE, Negra Primary Care Physician [phone] Encounter [facility] Date(s): 05/14/21 - 06/26/21 [facility] Attending Physician: Negra Cevallos NP Admitting [...] [facility]. 3Result Comment: [03/21/2013] ORDER DR OLSON 4Admin Note: VIS GIVEN:12/19/2011 5Result Comment: [id number] injections into three injections. Left and right [...] tablet, 2 Refills, Maintenance, 11/20/19 10:59:00 EDT, [facility]/pharmacy #1026, 184.5, cm, 208:36:00 EDT, Height, 69.7, kg, 06/22/19 15:01:00 E... Start Date: 11/20/19 Status: Ordered PARoxetine 20 mg oral tablet 20 mg, 1, tablet, By Mouth, Daily, To replace paroxetine 10 mg. For anxiety and depression., # 30 tablet, Refills 2, Tot. Refills 2, Maintenance, 12/25/19 11:03:00 EDT, Route to Pharmacy Electronically, [facility]/pharmacy #1026, 184.5, cm, 11/20/19 8:36:00... Start Date: 12/25/19 Status: Ordered predniSONE 20 mg oral tablet 3 tablet = 60 mg, By Mouth, Daily, # 21 tablet, 0 Refills, Acute 04/29/22 10:44:00 EST, 05/16/21 10:44:00 EST, Tablet, [facility]/pharmacy #[id number], Partial fill upon patient request if [...]
--- OUTSIDE RECORDS SUMMARY | 2023-11-01 03:27 | XMS_ITS | Continuity of Care Document ---
Author Organization [facility] Address [address] [place] [address]- Care Team Providers Care Bank Vault Custodian Name Role Phone Mart WINDER OPERATOR, Negra Primary Care Physician [phone] Encounter [facility] Date(s): 10/17/22 - 11/16/22 [facility]/[place] [address]- [place] Allergies, Adverse Reactions, Alerts No Known Allergies [...] OLSON 4Admin Note: VIS GIVEN:12/19/2011 5Result Comment: [id number] injections into three injections. Left and right [...] tablet, 2 Refills, Maintenance, 11/20/19 10:59:00 EDT, [facility]/pharmacy #1026, 184.5, cm, 208:36:00 EDT, Height, 69.7, kg, 06/22/19 15:01:00 E... Start Date: 11/20/19 Status: Ordered PARoxetine 20 mg oral tablet 20 mg, 1, tablet, By Mouth, Daily, To replace paroxetine 10 mg. For anxiety and depression., # 30 tablet, Refills 2, Tot. Refills 2, Maintenance, 12/25/19 11:03:00 EDT, Route to Pharmacy Electronically, [facility]/pharmacy #1026, 184.5, cm, 11/20/19 8:36:00... Start Date: 12/25/19 Status: Ordered Problem List Condition Confirmation Course Effective Dates Status Health St atus Informant ADHD Confirmed Active Anxiety Confirmed Active Pectus excavatum Confirmed Active Social History Social History Type Response Smoking Status Never (less than 100 in lifetime) entered on: 06/26/18 Sex Patient Care team information Care Team Personnel Name: Negra Cevallos NP Position: [facility]O Associate Professional Member Role: PCP Address: Address: [address] [place] [address]- Name: Tracey Rodriguez Position: [facility] Outreach Member Role: Lifetime Consulting Physician Care Team Related Persons Name: AARON TERRELL Address: home [address] [place] [address] Name: BEVERLY MEZA Address: home [address] [place] [address]
--- OUTSIDE RECORDS SUMMARY | 2023-11-01 03:27 | XMS_ITS | Continuity of Care Document ---
Author Organization [facility] ter Address [address] [place] [address]- Care Team Providers Care Band Builder Name Role Phone Mart PIERRE, Negra Primary Care Physician Encounter [facility] Date(s): 01/02/20 - 01/02/[address] [address] Encounter Diagnosis Encounter for repeat administration of rabies vaccination(Final) - 01/02/20 Discharge Disposition: A-D/C Home Attending Physician: Cassie Maria MD Admitting Physician: Cassie Maria MD Referring Physician: Not on Staff, Referring MD Allergies, Adverse Reactions, Alerts Substance Reaction Severity Status NKA Active Immunizations Given and Recorded Vaccine Date Status Refusal Reason 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 3Result Comment: [03/21/2013] ORDER DR OLSON 4Admin Note: VIS GIVEN:12/19/2011 5Result Comment: [id number] injections into three injections. Left and right [...] tablet, 2 Refills, Maintenance, 11/20/19 10:59:00 EDT, [facility]/pharmacy #1026, 184.5, cm, 208:36:00 EDT, Height, 69.7, kg, 06/22/19 15:01:00 E... Start Date: 11/20/19 Status: Ordered PARoxetine 20 mg oral tablet 20 mg, 1, tablet, By Mouth, Daily, To replace paroxetine 10 mg. For anxiety and depression., # 30 tablet, Refills 2, Tot. Refills 2, Maintenance, 12/25/19 11:03:00 EDT, Route to Pharmacy Electronically, [facility]/pharmacy #1026, 184.5, cm, 11/20/19 8:36:00... Start Date: 12/25/19 Status: Ordered Problem List Condition Effective Dates Status Health Status Inform ant ADHD(Confirmed) Active Anxiety(Confirmed) Active Pectus excavatum(Confirmed) Active Vital Signs Most recent to oldest [Reference Range]: 1 Height 183 cm (01/02/20 5:28 PM) Weight 66.9 kg (01/02/20 5:28 PM) Oxygen Saturation [94-100 %] 100 % (01/02/20 5:28 PM) Pulse Rate [55-90 bpm] 68 bpm (01/02/20 5:28 PM) Body Mass Index [18.5-24.99] 19.98 (01/02/20 5:28 PM) Blood Pressure [90-138/55-84 mm Hg] 140/ 84mm Hg *H* (01/02/20 5:28 PM) Respiratory Rate [16-30 br/min] 16 br/mi n (01/02/20 5:28 PM) Temperature [96.8-100.4 DegF] 98.2 DegF (01/02/20 5:28 PM) Mode of Delivery (Oxygen) Room air (01/02/20 5:28 PM) Blood pressure sites Arm, right (01/02/20 5:28 PM) Temperature Route Oral (01/02/20 5:28 PM) Dry Weight 66.9 kg (01/02/20 5:28 PM) Weight Obtained Via Standing scale (01/02/20 5:28 PM) Dry Weight Obtained Via Standing scale (01/02/20 5:28 PM) Social History Social History Type Response Smoking Status Never (less than 100 in lifetime) entered on: 06/26/18 Sex
--- OUTSIDE RECORDS SUMMARY | 2023-11-01 03:27 | XMS_ITS | Continuity of Care Document ---
Author Organization [facility] Address [address] [place] [address]- Care Team Providers Care Dog Licenser Name Role Phone Mart ACCOUNTANT MANAGER, Negra Primary Care Physician Encounter [facility] Date(s): 11/10/22 - 12/15/22 [facility]/[place] [address]- Attending Physician: Shawna Dacosta MD Admitting Physician: Shawna Dacosta MD Allergies, Adverse Reactions, Alerts No Known [...] OLSON 4Admin Note: VIS GIVEN:12/19/2011 5Result Comment: [id number] injections into three injections. Left and right [...] tablet, 2 Refills, Maintenance, 11/20/19 10:59:00 EDT, [facility]/pharmacy #1026, 184.5, cm, 208:36:00 EDT, Height, 69.7, kg, 06/22/19 15:01:00 E... Start Date: 11/20/19 Status: Ordered PARoxetine 20 mg oral tablet 20 mg, 1, tablet, By Mouth, Daily, To replace paroxetine 10 mg. For anxiety and depression., # 30 tablet, Refills 2, Tot. Refills 2, Maintenance, 12/25/19 11:03:00 EDT, Route to Pharmacy Electronically, [facility]/pharmacy #[id number], 184.5, cm, 11/20/19 8:36:00... [...] Team Personnel Name: Negra Cevallos NP Position: [facility]O Associate Professional Member Role: PCP Address: Address: [address] [place] [address]- Name: Tracey Rodriguez Position: [facility] Outreach Member Role: Lifetime Consulting Physician Care Team Related Persons Name: TERRELL AARON Address: home [address] [place] [address] Name: BEVERLY MEZA Address: home [address] [place] [address]
--- OUTSIDE RECORDS SUMMARY | 2023-11-01 03:27 | XMS_ITS | Continuity of Care Document ---
Author Organization [facility] Address [address] [place] [address]- Care Team Providers Care Doughnut Fryer Name Role Phone Mart PIERRE, Negra Primary Care Physician Encounter [facility] [place] Date(s): 02/03/20 - 03/15/20 [facility]/[address] [address]- [facility] Attending Physician: Negra Cevallos NP [...] right deltoid 2Result Comment: [07/31/2017] Given at [facility]. 3Result Comment: [03/21/2013] ORDER DR OLSON 4Admin Note: VIS GIVEN:12/19/2011 5Result Comment: [id number] injections into three injections. Left and right [...] tablet, 2 Refills, Maintenance, 11/20/19 10:59:00 EDT, [facility]/pharmacy #[id number], 184.5, cm, 208:36:00 EDT, Height, 69.7, kg, 06/22/19 15:01:00 E... Start Date: 11/20/19 Status: Ordered PARoxetine 20 mg oral tablet 20 mg, 1, tablet, By Mouth, Daily, To replace paroxetine 10 mg. For anxiety and depression., # 30 tablet, Refills 2, Tot. Refills 2, Maintenance, 12/25/19 11:03:00 EDT, Route to Pharmacy Electronically, [facility]/pharmacy #[id number], 184.5, cm, 11/20/19 8:36:00... Start Date: 12/25/19 Status: Ordered Problem List Condition Effective Dates Status Health Status Inform ant ADHD(Confirmed) Active Anxiety(Confirmed) Active Pectus excavatum(Confirmed) Active Social History Social History Type Response Smoking Status Never (less than 100 in lifetime) entered on: 06/26/18 Sex
== END 2023-11-01 03:34 | disposition left against medical advice (07) ==
PROVIDERS: Emergency Provider Emergency Medicine
DX: R06.00 Dyspnea, unspecified (principal); Z03.818 Encounter for observation for suspected exposure to other biological agents ruled out
CPT/HCPCS: 0241U; 71045; 87651; 99281; 99283